=== PATIENT | female | born 1955 | race Caucasian/White ===

== ENCOUNTER 2019-06-29 13:11 | Emergency (ER) | payer OTHER ==
[~2019-06-29] VITALS: Ht 162.6 cm; Wt 99.8 kg
--- OUTSIDE RECORDS SUMMARY | ~2019-06-29 | XMS | Encounter Summary ---
Demographics + + + | Address | [address] | | | [place] [address] | + + + | Home Phone | | + + + | Preferred Language | Unknown | + + + | Marital Status | | + + + | Samaritan Affiliation | Unknown | + + + | Race | Unknown | + + + | Ethnic Group | Unknown | + + + Author + + + | Author | [facility] | | | and [place] | + + + | Organization | [facility] | | | and [place] | + + + | Address | Unknown | + + + | Phone | Unavailable | + + + Support + + +---------+ + | Name | Relationship | Address | Phone | + + +---------+ + | Eduard Jefferson | ECON | Unknown | | + + +---------+ + Care Team Providers + +------+ + | Care Stitch Separator Name | Role | Phone | + +------+ + | Deep Grace DO | PCP | | + +------+ + Reason for Visit +--------+ + | Reason | Comments | +--------+ + | Biopsy | liver biopsy | +--------+ + Encounter Details +--------+ + + + + | Date | Type | Department | Care Team | Description | +--------+ + + + + | 04/06/ | Telephone | [facility] [place] | [place], | Biopsy (liver | | 2017 | | GASTROENTEROLOGY | AMISHA [address] | biopsy) | | | | [address] | [place] [place] [address] | | | | | [address] [place], [place] | [place], [place] | | | | | [address] | [address] | | | | | [phone] | | | +--------+ + + + + Social History + +-------+ +--------+------+ | Tobacco Use | Types | Packs/Day | Years | Date | | | | | Used | | + +-------+ +--------+------+ | Never Smoker | | | | | + +-------+ +--------+------+ + +---+---+---+ | Smokeless Tobacco: | | | | | Never Used | | | | + +---+---+---+ + + +---------+ + | Alcohol Use | Drinks/Week | oz/Week | Comments | + + +---------+ + | Yes | 3 Standard drinks | 3.0 | | | | or equivalent | | | + + +---------+ + + + + | Sex Assigned at | Date Recorded | | | | + + + | Not on file | | + + + + + + + | Job Start Date | Occupation | Industry | + + + + | Not on file | Not on file | Not on file | + + + + + + + + | Travel History | Travel Start | Travel End | + + + + + + | No recent travel history available. | + + documented as of this encounter Plan of Treatment Not on filedocumented as of this encounter Visit Diagnoses Not on filedocumented in this encounter"
--- OUTSIDE RECORDS SUMMARY | ~2019-06-29 | XMS | Encounter Summary ---
Demographics + + + | Address | [address] | | | [place] [address] | + + + | Home Phone | | + + + | Preferred Language | Unknown | + + + | Marital Status | | + + + | Latter Day Affiliation | Unknown | + + + | Race | Unknown | + + + | Ethnic Group | Unknown | + + + Author + + + | Author | [facility] | | | and [place] | + + + | Organization | [facility] | | | and [place] | [...] Team Providers + +------+ + | Care Early Head Start Director Name | Role | Phone | + +------+ + | Deep Grace DO | PCP | | + +------+ + Encounter Details +--------+ + + + + | Date | Type | Department | Care Team | Description | +--------+ + + + + | 03/17/ | Abstract | [facility] [place] | [place], | | | 2017 | | GASTROENTEROLOGY | [address] | | | | | [address] | [place] [address] | | | | | [address] [place] | [place] | | | | | [address] | [address] | | | | | [phone] | | | +--------+ + + + + Social History + +-------+ +--------+------+ | Tobacco Use | Types | Packs/Day | Years | Date | | | | | Used | | + +-------+ +--------+------+ | Unknown If Ever | | | | | | Smoked | | | | | + +-------+ +--------+------+ + + +---------+ + | Alcohol Use [...] Not on filedocumented as of this encounter Procedures + +--------+ + + + | Procedure Name | Priori | Date/Time | Associated Diagnosis | Comments | | | ty | | | | + +--------+ + + + | HEPATITIS A, B, C | Routin | 12/29/2016 | | Results for this | | PANEL, REFLEX | e | | | procedure are in the | | | | | | results section. | + +--------+ + + + | EXTERNAL LAB: KATHERINE | Routin | 12/22/2016 | | Results for this | | | e | | | procedure are in the | | | | | | results section. | + +--------+ + + + | EXTERNAL LAB: | Routin | 12/22/2016 | | Results for this | | GLUCOSE | e | | | procedure are in the | | | | | | results section. | + +--------+ + + + | EXTERNAL LAB: ALT | Routin | 12/22/2016 | | Results for this | | | e | | | procedure are in the | | | | | | results section. | + +--------+ + + + | EXTERNAL LAB: AST | Routin | 12/22/2016 | | Results for this | | | e | | | procedure are in the | | | | | | results section. | + +--------+ + + + | EXTERNAL LAB: | Routin | 12/22/2016 | | Results for this | | ALKALINE PHOSPHATASE | e | | | procedure are in the | | | | | | results section. | + +--------+ + + + | EXTERNAL LAB: | Routin | 12/22/2016 | | Results for this | | BILIRUBIN, TOTAL | e | | | procedure are in the | | | | | | results section. | + +--------+ + + + | EXTERNAL LAB: | Routin | 12/22/2016 | | Results for this | | ALBUMIN | e | | | procedure are in the | | | | | | results section. | + +--------+ + + + | EXTERNAL LAB: | Routin | 12/22/2016 | | Results for this | | PROTEIN, TOTAL | e | | | procedure are in the | | | | | | results section. | + +--------+ + + + | EXTERNAL LAB: | Routin | 12/22/2016 | | Results for this | | CALCIUM | e | | | procedure are in the | | | | | | results section. | + +--------+ + + + | EXTERNAL LAB: CARBON | Routin | 12/22/2016 | | Results for this | | DIOXIDE | e | | | procedure are in the | | | | | | results section. | + +--------+ + + + | EXTERNAL LAB: | Routin | 12/22/2016 | | Results for this | | CHLORIDE | e | | | procedure are in the | | | | | | results section. | + +--------+ + + + | EXTERNAL LAB: | Routin | 12/22/2016 | | Results for this | | POTASSIUM | e | | | procedure are in the | | | | | | results section. | + +--------+ + + + | EXTERNAL LAB: SODIUM | Routin | 12/22/2016 | | Results for this | | | e | | | procedure are in the | | | | | | results section. | + +--------+ + + + | EXTERNAL LAB: | Routin | 12/22/2016 | | Results for this | | VITAMIN D, | e | | | procedure are in the | | 25-HYDROXY | | | | results section. | + +--------+ + + + | EXTERNAL LAB: | Routin | 12/22/2016 | | Results for this | | URINALYSIS | e | | | procedure are in the | | | | | | results section. | + +--------+ + + + | EXTERNAL LAB: NELSON | Routin | 12/22/2016 | | Results for this | | | e | | | procedure are in the | | | | | | results section. | + +--------+ + + + | EXTERNAL LAB: KAYY | Routin | 12/22/2016 | | Results for this | | | e | | | procedure are in the | | | | | | results section. | + +--------+ + + + | EXTERNAL LAB: | Routin | 12/22/2016 | | Results for this | | TRIGLYCERIDES | e | | | procedure are in the | | | | | | results section. | + +--------+ + + + | EXTERNAL LAB: | Routin | 12/22/2016 | | Results for this | | CHOLESTEROL, HDL | e | | | procedure are in the | | | | | | results section. | + +--------+ + + + | EXTERNAL LAB: | Routin | 12/22/2016 | | Results for this | | CHOLESTEROL, TOTAL | e | | | procedure are in the | | | | | | results section. | + +--------+ + + + | EXTERNAL LAB: | Routin | 12/22/2016 | | Results for this | | CHOLESTEROL, LDL | e | | | procedure are in the | | | | | | results section. | + +--------+ + + + | EXTERNAL LAB: EGFR | Routin | 12/22/2016 | | Results for this | | | e | | | procedure are in the | | | | | | results section. | + +--------+ + + + | EXTERNAL LAB: | Routin | 12/22/2016 | | Results for this | | CREATININE | e | | | procedure are in the | | | | | | results section. | + +--------+ + + + | LIPID PANEL | Routin | 12/22/2016 | | Results for this | | | e | | | procedure are in the | | | | | | results section. | + +--------+ + + + | URINALYSIS, REFLEX | Routin | 12/22/2016 | | Results for this | | MICROSCOPIC AND/OR | e | | | procedure are in the | | CULTURE | | | | results section. | + +--------+ + + + | CBC WITH | Routin | 12/22/2016 | | Results for this | | DIFFERENTIAL | e | | | procedure are in the | | | | | | results section. | + +--------+ + + + | HEMOGLOBIN A1C | Routin | 12/22/2016 | | Results for this | | | e | | | procedure are in the | | | | | | results section. | + +--------+ + + + | COMPREHENSIVE | Routin | 12/22/2016 | | Results for this | | METABOLIC PANEL | e | | | procedure are in the | | | | | | results section. | + +--------+ + + + documented in this encounter Results Hepatitis A, B, C Tone Sharma (12/29/2016) + + + + + + | Component | Value | Ref Range | Performed | Pathologist | | | | | At | Signature | + + + + + + | HEP A IGM | Non Reactive | Non Reactive | | | + + + + + + | Hepatitis B | Negative | | | | | Surface | | | | | | Ag, | | | | | | External | | | | | + + + + + + | HEP B | Negative | | | | | SURFACE | | | | | | ANTIBODY | | | | | + + + + + + | Hepatitis B | Non Reactive | Non Reactive | | | | Core Ab, | | | | | | Total | | | | | + + + + + + | HCV Ab | negative | | | | + + + + + + + + | Specimen | + + | Blood | + + Urinalysis, Reflex Microscopic and/or Culture (12/22/2016) + + + + + + | Component | Value | Ref Range | Performed | Pathologist | | | | | At | Signature | + + + + + + | COLLECTION | Clean Catch | | | | | METHOD 1 | | | | | + + + + + + | Color | straw | | | | + + + + + + | Clarity | Clear | | | | + + + + + + | Bilirubin, | Negative | Negative | | | | Urine | | | | | + + + + + + | Nitrite, | Negative | Negative | | | | Urine | | | | | + + + + + + | Urobilinoge | Normal | < 0.2 mg/dL, | | | | n, Urine | | 1.0 mg/dL, 4.0 | | | | | | mg/dL, Normal, | | | | | | 1.0 E.U./dL, | | | | | | 0.2 E.U./dL, | | | | | | 0.2 mg/dL, | | | | | | Negative, 1 | | | | | | mg/dL, <2.0 | | | | | | mg/dL | | | + + + + + + | CASTS | Negative | | | | + + + + + + | WBC, UA | 0 | 0 - 4 | | | + + + + + + | Squamous | negative | | | | | epithelial, | | | | | | UA, POC | | | | | + + + + + + | CRYSTAL UA | Negative | | | | + + + + + + | Bacteria, | negative | | | | | UA | | | | | + + + + + + + + | Specimen | + + | Urine | + + Comprehensive Metabolic Panel (12/22/2016) + + + + + + | Component | Value | Ref Range | Performed | Pathologist | | | | | At | Signature | + + + + + + | BUN/Creatin | 31.6 (A) | 6 - 28.6 | | | | ine Ratio | | | | | + + + + + + | Globulin | 3.2 | 1.8 - 3.5 | | | + + + + + + | Albumin/Any | 1.3 | 1.1 - 2.4 | | | | bulin Ratio | | | | | + + + + + + | Anion Gap | 17 | 7 - 21 mmol/L | | | + + + + + + + + | Specimen | + + | Blood | + + Lipid Panel (12/22/2016) + +-------+ + + + | Component | Value | Ref Range | Performed | Pathologist | | | | | At | Signature | + +-------+ + + + | VLDL | 23 | 4 - 40 | | | | Cholesterol | | | | | | [place] | | | | | + +-------+ + + + | Chol/HDL | 3.4 | 0.0 - 4.4 | | | | Ratio | | | | | + +-------+ + + + | Non HDL | 130 | 0 - 130 | | | | Chol. | | | | | | (LDL+VLDL) | | | | | + +-------+ + + + + + | Specimen | + + | Blood | + + CBC with Differential (12/22/2016) + +-------+ + + + | Component | Value | Ref Range | Performed | Pathologist | | | | | At | Signature | + +-------+ + + + | MCH | 31.0 | 26.0 - 33.0 pg | | | + +-------+ + + + | MCHC | 34.0 | 30.0 - 36.0 % | | | + +-------+ + + + | Basophils % | 0.6 | 0 - 2 | | | + +-------+ + + + + + | Specimen | + + | Blood | + + Hemoglobin A1C (12/22/2016) + + + + + + | Component | Value | Ref Range | Performed | Pathologist | | | | | At | Signature | + + + + + + | Hemoglobin | 5.9Comment: Est Avg | | EXTERNAL | | | A1c, | Glucose 123 | | LAB | | | external | | | | | + + + + + + + + | Specimen | + + | Blood | + + + +---------+ + + | Performing | Address | City/State/Zipcode | Phone Number | | Organization | | | | + +---------+ + + | EXTERNAL LAB | | | | + +---------+ + + External Lab: BUN (12/22/2016) + +--------+ + + + | Component | Value | Ref Range | Performed | Pathologist | | | | | At | Signature | + +--------+ + + + | BUN, | 24 (A) | 6 - 23 | EXTERNAL | | | External | | | LAB | | + +--------+ + + + + +---------+ + + | Performing | Address | City/State/Zipcode | Phone Number | | Organization | | | | + +---------+ + + | EXTERNAL LAB | | | | + +---------+ + + External Lab: Glucose (12/22/2016) + +---------+ + + + | Component | Value | Ref Range | Performed | Pathologist | | | | | At | Signature | + +---------+ + + + | Glucose, | 109 (A) | 70 - 100 | EXTERNAL | | | External | | | LAB | | + +---------+ + + + + +---------+ + + | Performing | Address | City/State/Zipcode | Phone Number | | Organization | | | | + +---------+ + + | EXTERNAL LAB | | | | + +---------+ + + External Lab: ALT (12/22/2016) + +--------+ + + + | Component | Value | Ref Range | Performed | Pathologist | | | | | At | Signature | + +--------+ + + + | ALT, | 70 (A) | 7 - 52 | EXTERNAL | | | External | | | LAB | | + +--------+ + + + + +---------+ + + | Performing | Address | City/State/Zipcode | Phone Number | | Organization | | | | + +---------+ + + | EXTERNAL LAB | | | | + +---------+ + + External Lab: LUTHER (12/22/2016) + +--------+ + + + | Component | Value | Ref Range | Performed | Pathologist | | | | | At | Signature | + +--------+ + + + | AST, | 48 (A) | 13 - 39 | EXTERNAL | | | External | | | LAB | | + +--------+ + + + + +---------+ + + | Performing | Address | City/State/Zipcode | Phone Number | | Organization | | | | + +---------+ + + | EXTERNAL LAB | | | | + +---------+ + + External Lab: Alkaline Phosphatase (12/22/2016) + +-------+ + + + | Component | Value | Ref Range | Performed | Pathologist | | | | | At | Signature | + +-------+ + + + | ALP, | 91 | 31 - 130 | EXTERNAL | | | External | | | LAB | | + +-------+ + + + + +---------+ + + | Performing | Address | City/State/Zipcode | Phone Number | | Organization | | | | + +---------+ + + | EXTERNAL LAB | | | | + +---------+ + + External Lab: Bilirubin, Total (12/22/2016) + +-------+ + + + | Component | Value | Ref Range | Performed | Pathologist | | | | | At | Signature | + +-------+ + + + | Bilirubin, | 0.7 | 0 - 1.2 | EXTERNAL | | | Total, | | | LAB | | | External | | | | | + +-------+ + + + + +---------+ + + | Performing | Address | City/State/Zipcode | Phone Number | | Organization | | | | + +---------+ + + | EXTERNAL LAB | | | | + +---------+ + + External Lab: Albumin (12/22/2016) + +-------+ + + + | Component | Value | Ref Range | Performed | Pathologist | | | | | At | Signature | + +-------+ + + + | Albumin, | 4.3 | 3.5 - 5 | EXTERNAL | | | External | | | LAB | | + +-------+ + + + + +---------+ + + | Performing | Address | City/State/Zipcode | Phone Number | | Organization | | | | + +---------+ + + | EXTERNAL LAB | | | | + +---------+ + + External Lab: Protein, Total (12/22/2016) + +-------+ + + + | Component | Value | Ref Range | Performed | Pathologist | | | | | At | Signature | + +-------+ + + + | Protein, | 7.5 | 6 - 8 | EXTERNAL | | | Total, | | | LAB | | | External | | | | | + +-------+ + + + + +---------+ + + | Performing | Address | City/State/Zipcode | Phone Number | | Organization | | | | + +---------+ + + | EXTERNAL LAB | | | | + +---------+ + + External Lab: Calcium (12/22/2016) + +-------+ + + + | Component | Value | Ref Range | Performed | Pathologist | | | | | At | Signature | + +-------+ + + + | Calcium, | 10 | 8.4 - 10.2 | EXTERNAL | | | External | | | LAB | | + +-------+ + + + + +---------+ + + | Performing | Address | City/State/Zipcode | Phone Number | | Organization | | | | + +---------+ + + | EXTERNAL LAB | | | | + +---------+ + + External Lab: Carbon Dioxide (12/22/2016) + +-------+ + + + | Component | Value | Ref Range | Performed | Pathologist | | | | | At | Signature | + +-------+ + + + | Carbon | 20 | 19 - 31 | EXTERNAL | | | Dioxide, | | | LAB | | | External | | | | | + +-------+ + + + + +---------+ + + | Performing | Address | City/State/Zipcode | Phone Number | | Organization | | | | + +---------+ + + | EXTERNAL LAB | | | | + +---------+ + + External Lab: Chloride (12/22/2016) + +-------+ + + + | Component | Value | Ref Range | Performed | Pathologist | | | | | At | Signature | + +-------+ + + + | Chloride, | 105 | 98 - 112 | EXTERNAL | | | External | | | LAB | | + +-------+ + + + + +---------+ + + | Performing | Address | City/State/Zipcode | Phone Number | | Organization | | | | + +---------+ + + | EXTERNAL LAB | | | | + +---------+ + + External Lab: Potassium (12/22/2016) + +-------+ + + + | Component | Value | Ref Range | Performed | Pathologist | | | | | At | Signature | + +-------+ + + + | Potassium, | 4.3 | 3.6 - 5.1 | EXTERNAL | | | External | | | LAB | | + +-------+ + + + + +---------+ + + | Performing | Address | City/State/Zipcode | Phone Number | | Organization | | | | + +---------+ + + | EXTERNAL LAB | | | | + +---------+ + + External Lab: Sodium (12/22/2016) + +-------+ + + + | Component | Value | Ref Range | Performed | Pathologist | | | | | At | Signature | + +-------+ + + + | Sodium, | 138 | 132 - 143 | EXTERNAL | | | External | | | LAB | | + +-------+ + + + + +---------+ + + | Performing | Address | City/State/Zipcode | Phone Number | | Organization | | | | + +---------+ + + | EXTERNAL LAB | | | | + +---------+ + + External Lab: Vitamin D, 25-Hydroxy (12/22/2016) + +-------+ + + + | Component | Value | Ref Range | Performed | Pathologist | | | | | At | Signature | + +-------+ + + + | Vitamin D, | 54 | 30 - 100 | EXTERNAL | | | 25-Hydroxy, | | | LAB | | | External | | | | | + +-------+ + + + + + | Specimen | + + | Blood | + + + +---------+ + + | Performing | Address | City/State/Zipcode | Phone Number | | Organization | | | | + +---------+ + + | EXTERNAL LAB | | | | + +---------+ + + External Lab: Urinalysis (12/22/2016) + + + + + + | Component | Value | Ref Range | Performed | Pathologist | | | | | At | Signature | + + + + + + | UA Blood, | 150 | | EXTERNAL | | | External | | | LAB | | + + + + + + | UA Glucose, | Normal | | EXTERNAL | | | External | | | LAB | | + + + + + + | UA Ketones, | Negative | | EXTERNAL | | | External | | | LAB | | + + + + + + | UA Ph, | 5 | 5 - 9 | EXTERNAL | | | External | | | LAB | | + + + + + + | UA | Negative | | EXTERNAL | | | Proteins, | | | LAB | | | External | | | | | + + + + + + | UA RBC, | 50 (A) | 0 - 4 | EXTERNAL | | | External | | | LAB | | + + + + + + | UA Specific | 1.011 | 1.005 - 1.03 | EXTERNAL | | | [place], | | | LAB | | | External | | | | | + + + + + + | UA | Negative | | EXTERNAL | | | Leukocyte | | | LAB | | | Esterase, | | | | | | External | | | | | + + + + + + + +---------+ + + | Performing | Address | City/State/Zipcode | Phone Number | | Organization | | | | + +---------+ + + | EXTERNAL LAB | | | | + +---------+ + + External Lab: CBC (12/22/2016) + + + + + + | Component | Value | Ref Range | Performed | Pathologist | | | | | At | Signature | + + + + + + | WBC, | 7 | 4.5 - 11 | EXTERNAL | | | External | | | LAB | | + + + + + + | HGB, | 15.4 | 12 - 16 | EXTERNAL | | | External | | | LAB | | + + + + + + | HCT, | 45.8 (A) | 35 - 45 | EXTERNAL | | | External | | | LAB | | + + + + + + | PLT, | 200 | 140 - 440 | EXTERNAL | | | External | | | LAB | | + + + + + + | Neutrophils | 40.6 | 39 - 80 | EXTERNAL | | | %, | | | LAB | | | External | | | | | + + + + + + | Lymphocytes | 47.2 (A) | 24 - 44 | EXTERNAL | | | %, | | | LAB | | | External | | | | | + + + + + + | Monocytes | 8.5 | 0 - 12 | EXTERNAL | | | %, External | | | LAB | | + + + + + + | Eosinophils | 3.1 | 0 - 6 | EXTERNAL | | | %, | | | LAB | | | External | | | | | + + + + + + | RBC, | 4.98 | 3.8 - 5.1 | EXTERNAL | | | External | | | LAB | | + + + + + + | MCV, | 92 | 81 - 99 | EXTERNAL | | | External | | | LAB | | + + + + + + | RDW, | 13.7 | 10.5 - 15 | EXTERNAL | | | External | | | LAB | | + + + + + + + +---------+ + + | Performing | Address | City/State/Zipcode | Phone Number | | Organization | | | | + +---------+ + + | EXTERNAL LAB | | | | + +---------+ + + External Lab: TSH (12/22/2016) + +-------+ + + + | Component | Value | Ref Range | Performed | Pathologist | | | | | At | Signature | + +-------+ + + + | TSH, | 1.57 | 0.27 - 4.2 | EXTERNAL | | | External | | | LAB | | + +-------+ + + + + + | Specimen | + + | Blood | + + + +---------+ + + | Performing | Address | City/State/Zipcode | Phone Number | | Organization | | | | + +---------+ + + | EXTERNAL LAB | | | | + +---------+ + + External Lab: Triglycerides (12/22/2016) + +-------+ + + + | Component | Value | Ref Range | Performed | Pathologist | | | | | At | Signature | + +-------+ + + + | Triglycerid | 117 | 30 - 150 | EXTERNAL | | | es, | | | LAB | | | External | | | | | + +-------+ + + + + + | Specimen | + + | Blood | + + + +---------+ + + | Performing | Address | City/State/Zipcode | Phone Number | | Organization | | | | + +---------+ + + | EXTERNAL LAB | | | | + +---------+ + + External Lab: Cholesterol, HDL (12/22/2016) + +-------+ + + + | Component | Value | Ref Range | Performed | Pathologist | | | | | At | Signature | + +-------+ + + + | HDL | 53.3 | 40 - 99,999 | EXTERNAL | | | Cholesterol | | mg/dl | LAB | | | , External | | | | | + +-------+ + + + + + | Specimen | + + | Blood | + + + +---------+ + + | Performing | Address | City/State/Zipcode | Phone Number | | Organization | | | | + +---------+ + + | EXTERNAL LAB | | | | + +---------+ + + External Lab: Cholesterol, Total (12/22/2016) + +-------+ + + + | Component | Value | Ref Range | Performed | Pathologist | | | | | At | Signature | + +-------+ + + + | Cholesterol | 183 | 0 - 200 mg/dl | EXTERNAL | | | , Total, | | | LAB | | | External | | | | | + +-------+ + + + + + | Specimen | + + | Blood | + + + +---------+ + + | Performing | Address | City/State/Zipcode | Phone Number | | Organization | | | | + +---------+ + + | EXTERNAL LAB | | | | + +---------+ + + External Lab: Cholesterol, LDL (12/22/2016) + +---------+ + + + | Component | Value | Ref Range | Performed | Pathologist | | | | | At | Signature | + +---------+ + + + | LDL | 106 (A) | 0 - 100 | EXTERNAL | | | Cholesterol | | | LAB | | | , Direct, | | | | | | External | | | | | + +---------+ + + + + + | Specimen | + + | Blood | + + + +---------+ + + | Performing | Address | City/State/Zipcode | Phone Number | | Organization | | | | + +---------+ + + | EXTERNAL LAB | | | | + +---------+ + + External Lab: eGFR (12/22/2016) + +-------+ + + + | Component | Value | Ref Range | Performed | Pathologist | | | | | At | Signature | + +-------+ + + + | eGFR, | >60 | 60 - 99,999 | EXTERNAL | | | External | | | LAB | | + +-------+ + + + + + | Specimen | + + | Blood | + + + +---------+ + + | Performing | Address | City/State/Zipcode | Phone Number | | Organization | | | | + +---------+ + + | EXTERNAL LAB | | | | + +---------+ + + External Lab: Creatinine (12/22/2016) + +-------+ + + + | Component | Value | Ref Range | Performed | Pathologist | | | | | At | Signature | + +-------+ + + + | Creatinine, | 0.76 | 0.7 - 1.33 | EXTERNAL | | | External | | | LAB | | + +-------+ + + + + + | Specimen | + + | Blood | + + + +---------+ + + | Performing | Address | City/State/Zipcode | Phone Number | | Organization | | | | + +---------+ + + | EXTERNAL LAB | | | | + +---------+ + + documented in this encounter Visit Diagnoses Not on filedocumented in this encounter"
--- OUTSIDE RECORDS SUMMARY | ~2019-06-29 | XMS | Encounter Summary ---
Demographics + + + | Address | [address] | | | [place] [address] | + + + | Home Phone | | + + + | Preferred Language | Unknown | + + + | Marital Status | | + + + | Zoroastrianism Affiliation | Unknown | + + + | Race | Unknown | + + + | Ethnic Group | Unknown | + + + Author + + + | Author | [facility] | | | and [place] | + + + | Organization | [facility] | | | and [place] | [...] Team Providers + +------+ + | Care Health Commissioner Name | Role | Phone | + +------+ + | Deep Grace DO | PCP | | + +------+ + Reason for Visit + + + | Reason | Comments | + + + | Follow-up | | + + + Encounter Details +--------+---------+ + + + | Date | Type | Department | Care Team | Description | +--------+---------+ + + + | 04/28/ | Office | [facility] | [place], | Elevated LFTs | | 2017 | Visit | GASTROENTEROLOGY | AMISHA Brennan [address] | (Primary Dx); Fatty | | | | [address] | [place] [address] | infiltration of | | | | [address] [place], [place] | [place], [place] | liver; Obesity (BMI | | | | [address] | [address] | 30-39.9) | | | | [phone] | | | +--------+---------+ + + + Social History + +-------+ [...] + + +---------+ + | Yes | 1 Glasses of wine | 3.0 | Not each one per | | | 1 Cans of beer 1 | | week. It | | | Shots of liquor | | | | | | | s either or. | + + +---------+ + + + [...] + + documented as of this encounter Last Filed Vital Signs + + + + + | Vital Sign | Reading | Time Taken | Comments | + + + + + | Blood Pressure | 134/84 | 04/28/2017 10:25 AM | | | | | PDT | | + + + + + | Pulse | 88 | 04/28/2017 10:25 AM | | | | | PDT | | + + + + + | Temperature | 36.5 C (97.7 F) | 04/28/2017 10:25 AM | | | | | PDT | | + + + + + | Respiratory Rate | 14 | 04/28/2017 10:25 AM | | | | | PDT | | + + + + + | Oxygen Saturation | 98% | 04/28/2017 10:25 AM | | | | | PDT | | + + + + + | Inhaled Oxygen | - | - | | | Concentration | | | | + + + + + | Weight | 93 kg (205 lb 0.4 | 04/28/2017 10:25 AM | | | | oz) | PDT | | + + + + + | Height | - | - | | + + + + + | Body Mass Index | 35.19 | 04/22/2017 8:04 AM | | | | | PDT | | + + + + + documented in this encounter Progress Notes Anu Salinas ARNP - 04/28/2017 10:30 AM PDTFormatting of this note might be differe nt from the original. PATIENT NAME: Jose Jefferson : 1955: AGE: 62 y.o. REFERRED BY: No additional provider found PRIMARY CARE: Deep Grace Subjective: CHIEF COMPLAINT: Jose Jefferson is a 62 y.o. female is here for a follow up. She is being seen today f or follow up liver biopsy. HISTORY OF PRESENT ILLNESS: She is here following liver biopsy due to elevated liver enzymes. She continues to lose weight intentionally. She has modified her diet and is eating SyncSumi er. She is here for follow up labs and biopsy. Denies ascites, jaundice, hematemesis, peripheral edema, sleep changes, or confusion. 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 Internal hemorrhoids.~ [facility] Dr. Evans EYE SURGERY 2014 LIVER BIOPSY 04/22/2017 Procedure: US GUIDED LIVER BIOPSY - Location: [facility] ULTRASOUND TONSILLECTOMY 1960 Family History Problem Relation Age of Onset Heart disease Mother Hypertension Mother High blood pressure Mother High cholesterol Mother Stroke Mother Slight Hypertension Father High blood pressure Father High cholesterol Father Other (see comment) Sister possible fibromyalgia Hypertension Sister Diabetes Other Heart disease Other Social History Social History Marital status: Spouse name: N/A Number of children: N/A Years of education: N/A Occupational History Not on file. Social History Main Topics Smoking status: Never Smoker Smokeless tobacco: Never Used Alcohol use 1.8 oz/week 1 Glasses of wine, 1 Cans of beer, 1 Shots of liquor per week Comment: Not each one per week. It s either or. Drug use: No Sexual activity: No Other Topics Concern Not on file Social History Narrative No narrative on file Review Of Systems Constitutional: Denies any fevers, chills, or unintentional weight loss. Respiratory:Denies shortness of breath, cough or wheezing. Gastrointestinal:Negative except as stated above. Cardiovascular:Denies chest pain, palpitations, or swelling to legs Objective: PHYSICAL EXAM: General: Alert and oriented, NAD Eyes: Sclera clear Mouth: Mucous membranes moist Extremities: No clubbing or edema Skin: Warm, dry, intact. No rashes noted Neuro: Cranial nerves 2-12 grossly intact. Psych: Appropriate mood and affect. Admission on 04/22/2017, Discharged on 04/22/2017 Component Date Value Ref Range Status WBC 04/22/2017 7.3 4.0 - 11.0 K/uL Final RBC 04/22/2017 4.75 3.70 - 5.20 M/uL Final Hgb 04/22/2017 15.1 11.5 - 16.0 g/dL Final Hct 04/22/2017 43.9 34.0 - 47.0 % Final MCV 04/22/2017 92.3 83.0 - 101.0 fL Final MCH 04/22/2017 31.7 28.0 - 35.0 pg Final MCHC 04/22/2017 34.3 32.0 - 36.0 g/dL Final RDW-CV 04/22/2017 13.1 <15.0 % Final Platelet Count 04/22/2017 195 140 - 440 K/uL Final MPV 04/22/2017 8.0 fL Final PROTIME 04/22/2017 12.6 11.3 - 13.9 seconds Final INR 04/22/2017 0.95 0.90 - 1.10 Final Abstract on 04/21/2017 Component Date Value Ref Range Status Creatinine, External 04/18/2017 0.9 0.7 - 1.25 Final eGFR, External 04/18/2017 >60 60 - 99,999 Final Ferritin, External 04/18/2017 476.2* 13 - 150 Final Iron Binding Capacity, External 04/18/2017 217 Final Iron Saturation, External 04/18/2017 26.6 20 - 55 Final Iron, External 04/18/2017 78.8 37 - 160 Final Sodium, External 04/18/2017 140 132 - 143 Final Potassium, External 04/18/2017 4.2* 5.1 - 102 Final Chloride, External 04/18/2017 102 95 - 112 Final Carbon Dioxide, External 04/18/2017 22 19 - 31 Final Calcium, External 04/18/2017 9.9 8.4 - 10.2 Final Protein, Total, External 04/18/2017 6.9 6 - 8 Final Albumin, External 04/18/2017 4.5 3.5 - 5 Final Bilirubin, Total, External 04/18/2017 0.6 0 - 1.2 Final ALP, External 04/18/2017 87 31 - 130 Final AST, External 04/18/2017 19 13 - 39 Final ALT, External 04/18/2017 25 7 - 52 Final Glucose, External 04/18/2017 98 70 - 100 Final BUN, External 04/18/2017 22 6 - 23 Final INR, External 04/18/2017 1 Final PT, External 04/18/2017 13.2 12 - 15 Final WBC, External 04/18/2017 6.7 4.5 - 11 Final HGB, External 04/18/2017 14.9 12 - 16 Final HCT, External 04/18/2017 43.8 35 - 45 Final PLT, External 04/18/2017 198 140 - 440 Final Neutrophils %, External 04/18/2017 39.9 39 - 80 Final Lymphocytes %, External 04/18/2017 50.2* 24 - 44 Final Monocytes %, External 04/18/2017 6.1 0 - 12 Final Eosinophils %, External 04/18/2017 3.3 0 - 6 Final RBC, External 04/18/2017 4.74 3.5 - 5.1 Final MCV, External 04/18/2017 92 81 - 99 Final RDW, External 04/18/2017 13.1 10.5 - 15 Final TIBC 04/18/2017 286 245 - 400 ug/dL Final TRANSFERRIN 04/18/2017 211.5 192.0 - 382.0 mg/dL Final ANION GAP 04/18/2017 20 7 - 21 mmol/L Final BUN/Creatinine Ratio 04/18/2017 24.4 6 - 28.6 Final Globulin 04/18/2017 2.4 1.8 - 3.5 Final Albumin/Globulin Ratio 04/18/2017 1.9 1.1 - 2.4 Final A-1 Antitrypsin 04/18/2017 146 84 - 218 Final MITOCHONDRIAL AB 04/18/2017 <1:20 0 - 1:40 Final Smooth Muscle Ab 04/18/2017 1:80 0 - 1:40 Final CERULOPLASMIN 04/18/2017 29.9 18 - 58 Final AFP Tumor Marker 04/18/2017 2.4 0.0 - 7.0 ng/mL Final MCH 04/18/2017 31.0 26.0 - 33.0 pg Final MCHC 04/18/2017 34.0 30.0 - 36.0 % Final Basophils % 04/18/2017 0.5 0 - 2 Final ALIVIA Titer 04/18/2017 <1:80 0 - 1:80 Final Nuclear Ab Pattern.Nucleolar 04/18/2017 N/A Final Abstract on 03/30/2017 Component Date Value Ref Range Status Colonoscopy Impression, External 05/27/2016 Diagnoses: diverticulosis, no evidence of p olyps. Internal hemorrhoids.~ [facility] Dr. Evans Final Liver biopsy 04/22/2017: FINAL PATHOLOGIC DIAGNOSIS: Liver, needle biopsy: - Chronic hepatitis with minimal activity (grade 1 of 4 grades, Laurence-Brigido; Metavir act ivity score A1) and periportal fibrosis (stage 2 of 4 stages, Laurence-Brigido; Metavir fibrosis score F2). - Mild steatosis. COMMENT: Available laboratory data indicates mild elevation of transaminases with AST-to-ALT ratio o f less than 1. Laboratory tests are negative for hepatitis A, B and C. More recently, s tudies for transaminases were normal. Ferritin was elevated, but iron binding capacity was normal. ALIVIA titer was indicated to be less than 1:80, antimitochondrial antibody titer less than 1: 20 and smooth muscle antibody positive at 1:80. There are moderate numbers of macrophages containing diastase-resistant material scattered within the liver. These are markers of prior inflammation and may correlate with the earli er elevated transaminases that have normalized. The mild inflammatory changes are predominantly luis eduardo l based with relative sparing of central vein regions (acinar zone 3). This makes steatohe patitis a less likely explanation for the inflammatory changes present, but cannot be ruled out. There a re scattered eosinophils, and this raises the possibility of some form of medication-associa jamey liver injury. Review of the patient's medications (prescribed, mafp-jca-vplhnil and herbal remedies) may be informative. Since there is negligible plasma cell component to the inflammation and an absence of active interface hepatitis, autoimmune hepatitis appears unlikely despite the low level anti-bertha h muscle antibody lab test. In addition, the patient has normal globulin levels, and typical ly patients with autoimmune hepatitis will have elevated IgG. There are no features to suggest primary sanna iary tract lesion. Assessment: 1. Elevated LFTs 2. Fatty infiltration of liver 3. Obesity (BMI 30-39.9) Plan: Continue with weight loss and low fat diet. Discussed herbal supplements to avoid. Recommend screening for hepatocellular carcinoma secondary to fatty liver without cirrhosis every 12 months. This includes CBC, CMP, INR, AFP, and abdominal ultrasound. Patient is to call with any question or concerns. Any fevers, chills, chest pain, SOB or o ther serious symptoms patient is to call the office or go to ER Cc: Deep Grace This note was dictated using voice recognition software. Please contact me if there are an y questions regarding its content. documented in this encounter Plan of Treatment Not on filedocumented as of this encounter Procedures + +--------+ + + + | Procedure Name | Priori | Date/Time | Associated Diagnosis | Comments | | | ty | | | | + +--------+ + + + | LABS - EXTERNAL SCAN | | 04/18/2017 | | Results for this | | | | 12:00 AM | | procedure are in the | | | | PDT | | results section. | + +--------+ + + + | LABS - EXTERNAL SCAN | | 04/18/2017 | | Results for this | | | | 12:00 AM | | procedure are in the | | | | PDT | | results section. | + +--------+ + + + documented in this encounter Results LABS - EXTERNAL SCAN (04/18/2017 12:00 AM PDT) + + + | Narrative | Performed At | + + + | Ordered by an | | | unspecified provider. | | + + + LABS - EXTERNAL SCAN (04/18/2017 12:00 AM PDT) + + + | Narrative | Performed At | + + + | Ordered by an | | | unspecified provider. | | + + + documented in this encounter Visit Diagnoses + + | Diagnosis | + + | Elevated LFTs - Primary Other abnormal blood chemistry | + + | Fatty infiltration of liver Other chronic nonalcoholic liver disease | + + | Obesity (BMI 30-39.9) Obesity, unspecified | + + documented in this encounter"
--- OUTSIDE RECORDS SUMMARY | ~2019-06-29 | XMS | Encounter Summary ---
Demographics + + + | Address | [address] | | | [place] [address] | + + + | Home Phone | | + + + | Preferred Language | Unknown | + + + | Marital Status | | + + + | Denominational Affiliation | Unknown | + + + | Race | Unknown | + + + | Ethnic Group | Unknown | + + + Author + + + | Author | [facility] | | | and [place] | + + + | Organization | [facility] | | | and [place] | [...] Team Providers + +------+ + | Care Hotel Associate Name | Role | Phone | + +------+ + | Deep Grace DO | PCP | | + +------+ + Reason for Referral Diagnostic/Screening (Routine) +--------+--------+ + + + + | Status | Reason | Specialty | Diagnoses / | Referred By | Referred To | | | | | Procedures | Contact | Contact | +--------+--------+ + + + + | Closed | | Radiology | Diagnoses | | [facility] | | | | | Fatty | Rita, | Ultrasound | | | | | infiltration | Anu, | [address] | | | | | of liver | SECURITY INSPECTOR [address] | [place], | | | | | Procedures | [address], [place] | [place] | | | | | [place] Guided | [address] | [address] | | | | | Liver Biopsy | [place] | Phone: | | | | | [place] | [address] | [phone] | | | | | GUIDE NEEDLE | Phone: | Fax: | | | | | BIOPSY NE | [phone] | [phone] | | | | | BIOPSY LIVER | Fax: | | | | | | NEEDLE | [phone] | | | | | | PERCUTANEOUS | | | +--------+--------+ + + + + Reason for Visit + + + | Reason | Comments | + + + | New Patient | fatty liver | + + + Evaluate & Treat (Routine) +--------+--------+ + + + + | Status | Reason | Specialty | Diagnoses / | Referred By | Referred To | | | | | Procedures | Contact | Contact | +--------+--------+ + + + + | Closed | | Gastroenterol | Diagnoses | Lesly, | Shonai, | | | | ogy | Fatty | Deep Philip, | Mateus Philip MD | | | | | (change of) | DO [address] | [address], | | | | | liver, not | [address] [place] | [address] | | | | | elsewhere | [place], [place] | [place], | | | | | classified | [address] | [place] [address] | | | | | Procedures | Phone: | Phone: | | | | | Office Visit | [phone] | [phone] | | | | | | Fax: | Fax: | | | | | | [phone] | [phone] | +--------+--------+ + + + + Encounter Details +--------+---------+ + + + | Date | Type | Department | Care Team | Description | +--------+---------+ + + + | 03/31/ | Office | [facility] | Rita, | Fatty infiltration | | 2017 | Visit | GASTROENTEROLOGY | AMISHA Brennan [address] | of liver (Primary | | | | [address] | [place], [place] [address] | Dx); Obesity (BMI | | | | [address] [place], [place] | [place], [place] | 30-39.9); Elevated | | | | [address] | [address] | LFTs | | | | [phone] | | | +--------+---------+ + + + [...] + + + | Blood Pressure | 136/72 | 03/31/2017 9:46 AM | | | | | PDT | | + + + + + | Pulse | 69 | 03/31/2017 9:46 AM | | | | | PDT | | + + + + + | Temperature | 36.3 C (97.3 F) | 03/31/2017 9:46 AM | | | | | PDT | | + + + + + | Respiratory Rate | 24 | 03/31/2017 9:46 AM | | | | | PDT | | + + + + + | Oxygen Saturation | 98% | 03/31/2017 9:46 AM | | | | | PDT | | + + + + + | Inhaled Oxygen | - | - | | | Concentration | | | | + + + + + | Weight | 93.4 kg (206 lb) | 03/31/2017 9:46 AM | | | | | PDT | | + + + + + | Height | 162.6 cm (5' 4") | 03/31/2017 9:46 AM | | | | | PDT | | + + + + + | Body Mass Index | 35.36 | 03/31/2017 9:46 AM | | | | | PDT | | + + + + + documented in this encounter Patient Instructions Patient Instructions Anu Salinas ARNP - 03/31/2017 10:00 AM PDT Nonalcoholic Fatty Liver Disease (NAFLD) Nonalcoholic fatty liver disease (NAFLD) is a common disease of the liver. It occurs when y ou have too much fat in the liver. If NAFLD is severe, it can cause liver damage that seems like the damage caused by drinking too much alcohol. But NAFLD is not caused by drinking alc ohol. This sheet tells you more about NAFLD and how it can be managed. How the liver works The liver is an organin the upper right side of the belly (abdomen). It has many importan t jobs. These include: Breaking down (metabolizing) proteins, carbohydrates, and fats Making a substance called bile that helps break down fats Storing and releasing sugar (glucose) into the blood to give the body energy Removing toxins from the blood Helping with blood clotting Understanding NAFLD A healthy liver may contain some fat. But if too much fat builds up in the liver, this caus es NAFLD. NAFLD can be mild, causing fatty liver. Or it can be more severe and show inflamma tion, as well as the fat. This can cause non-alcoholic steatohepatitis (HARVEY). Fatty liver. With fatty liver, the liver simply has more fat than normal. This extra fat usually does not harm the liver. HARVEY. With HARVEY, the fatty liver becomes inflamed over time. HARVEY is serious because it can lead to scarring of the liver (fibrosis).Over time, the scarring may lead to cirrhosis of the liver. This can eventually cause liver failure or liver cancer. Causes and risk factors of NAFLD Doctors don't know what causes NAFLD. But certain thingsmake the problem more likely to h appen. These include: Obesity Prediabetes or diabetes High levels of fat found in the blood (cholesterol and triglycerides) Being exposed to certain medicines Symptoms of NAFLD Most people with NAFLD have no symptoms. If symptoms do occur, they can include: Tiredness Weakness Weight loss Loss of appetite Nausea and vomiting Belly pain and cramping Yellowing of the skin and eyes (jaundice), as well as dark urine, or light-colored stool s Swelling in the belly or legs Diagnosing NAFLD Your healthcare providermay think you have NAFLD if routine blood tests showhigh levels of liver enzymes. This may mean you havea liver problem. You may need one or more imaging tests, such as an ultrasound, CT, or MRI. You may need moreblood tests to look for other causes of liver disease.You may also need a liver biopsy. During this test, a hollow needl e is used to remove a tiny tissue sample from your liver. This tissue is then checked in a l ab. This test can find signs of damage to liver tissue. It can also help figure out the caus e of the damage and tell the difference between fatty liver and HARVEY. Treating NAFLD Treatment for NAFLD varies for each person. The best early treatment is to treat any underl joe conditions causing metabolic syndrome. This is the name for a group of conditions that includes: High blood pressure High levels of cholesterol and triglycerides Being overweight or obese Diabetes Your healthcare provider will monitor your health and treat any symptoms or underlying heal th problems you have. Your provider will also work with you to control your risk factors. Th is will make liverdamage less likely. In fact, treating those underlying conditions can of ten improve liver disease.You may need to take certain medicines, but no medicine will cur e NAFLD. This is why treating the underlying conditions is most important. Your plan may inc lude: Losing extra weight Getting regular exercise Controlling diabetes and high cholesterol or triglyceride levels Taking medicines and vitamins as prescribed by your provider Quitting smoking Not drinking alcohol Eating a healthy and balanced diet Living with NAFLD If NAFLD is caught early, it can be managed with treatment. Your healthcare provider will d iscuss further treatment choices with you as needed. Be sure to ask your provider about recommended vaccines. These include vaccines for viruses that can cause liver disease. Date Last Reviewed: 05/27/201619999411-8926 [employer]. [address] [place] [address]. All righ ts reserved. This information is not intended as a substitute for professional medical care. Always follow your healthcare professional's instructions. documented in this encounter Progress Notes Anu Salinas ARNP - 03/31/2017 10:00 AM PDTFormatting of this note might be differe nt from the original. PATIENT NAME: Jose Jefferson : 1955: AGE: 62 y.o. REFERRED BY: Deep Grace PRIMARY CARE: Deep Grace Subjective: CHIEF COMPLAINT: Jose Jefferson is a 62 y.o. female referred by Deep Grace for evaluation and treatment of fatty liver. HISTORY OF PRESENT ILLNESS: Patient reports that during routine physical, she was found to have elevated liver fuction tests and fatty liver. She is unsure if there is a history of elevation of LFTs. Labs showed no evidence of exposure to Hepatitis C or adequate immunization for Hepatitis A or B. She has an average 1, 8 ounce glass of wine per week. She has a history of elevated cholesterol. She has intentionally lost about 20 lbs since 2016. No known personal or family history of autoimmune disease. No known use of hepatoxic medications. Denies ascites, jaundice, hematemesis, peripheral edema, sleep changes, or confusion. 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 Internal hemorrhoids.~ [facility] Dr. Evans Family History Problem Relation Age of Onset Heart disease Mother Hypertension Mother Hypertension Father Other (see comment) Sister possible fibromyalgia Hypertension Sister Diabetes Other Heart disease Other Social History Social History Marital status: Spouse name: N/A Number of children: N/A Years of education: N/A Occupational History Not on file. Social History Main Topics Smoking status: Never Smoker Smokeless tobacco: Never Used Alcohol use 1.8 oz/week 3 Standard drinks or equivalent per week Drug use: Unknown Sexual activity: Not on file Other Topics Concern Not on file Social History Narrative No narrative on file Review Of Systems Constitutional: Denies any fevers, chills, or unintentional weight loss. Eye: Denies using glaucoma eye drops. Denies dry, burning, painful eyes Respiratory:Denies shortness of breath, cough or wheezing. Gastrointestinal:Denies constipation, diarrhea, bloody or black stools, hematemesis, nausea or vomiting, hemorrhoids, heartburn, abdominal pain, or dysphagia. Skin: Denies rashes Neurological: Denies memory difficulties, numbness or tingling, muscle weakness, paralysis of arms or legs, epilepsy or seizure, or frequent bothersome and headaches ENT: Complains of hayfever. Denies hearing loss, hearing aids, hearing ringing or buzzing i n ears, constantly runny nose, nasal obstruction, dentures, or hoarseness. Cardiovascular:Denies chest pain, palpitations, or swelling to legs Genitourinary: Denies painful urination, urine incontinence, waking up on average more than once per night to urinate, bloody urine, or impotence Musculoskeletal: Denies swollen joints, painful back, or painful joints. Psychiatric: Denies depression and anxiety. Endocrine: Denies enlarged thyroid. Hematology/ Lymph: Denies anemia or enlarged lymph glands. Objective: PHYSICAL EXAM: General: well developed, well nourished, in no acute distress. Head: normocephalic and atraumatic Eyes: Sclera clear Mouth: MMM Lungs: Clear to auscultate bilaterally and throughout Heart: regular rate and rhythm Abdomen: Soft, non tender, non distended, bowel tones positive times 4 quadrants, negative Mariza y's sign, negative rebound tenderness, no guarding, no hepatosplenomegaly palpated. Msk: symmetrical with no deformity, with normal posture and gait, normal strength. Extremities: no clubbing, cyanosis, edema, or deformity noted Neurologic: no focal deficits, cranial nerves II-XII grossly intact Skin: intact without lesions or rashes. Psych: alert and cooperative; normal mood and affect; normal attention span and concentration. Abstract on 03/30/2017 Component Date Value Ref Range Status Colonoscopy Impression, External 05/27/2016 Diagnoses: diverticulosis, no evidence of p olyps. Internal hemorrhoids.~ [facility] Dr. Evans Final Abstract on 03/17/2017 Component Date Value Ref Range Status HEP A IGM 12/29/2016 Non Reactive Non Reactive Final Hepatitis B Surface Ag, External 12/29/2016 Negative Final HEP B SURFACE ANTIBODY 12/29/2016 Negative Final HEP B C TOTAL AB 12/29/2016 Non Reactive Non Reactive Final HCV Ab 12/29/2016 negative Final Creatinine, External 12/22/2016 0.76 0.7 - 1.33 Final eGFR, External 12/22/2016 >60 60 - 99,999 Final LDL Cholesterol, External 12/22/2016 106* 0 - 100 Final Cholesterol, Total, External 12/22/2016 183 0 - 200 mg/dl Final HDL Cholesterol, External 12/22/2016 53.3 40 - 99,999 mg/dl Final Triglycerides, External 12/22/2016 117 30 - 150 Final TSH, External 12/22/2016 1.57 0.27 - 4.2 Final WBC, External 12/22/2016 7 4.5 - 11 Final HGB, External 12/22/2016 15.4 12 - 16 Final HCT, External 12/22/2016 45.8* 35 - 45 Final PLT, External 12/22/2016 200 140 - 440 Final Neutrophils %, External 12/22/2016 40.6 39 - 80 Final Lymphocytes %, External 12/22/2016 47.2* 24 - 44 Final Monocytes %, External 12/22/2016 8.5 0 - 12 Final Eosinophils %, External 12/22/2016 3.1 0 - 6 Final RBC, External 12/22/2016 4.98 3.8 - 5.1 Final MCV, External 12/22/2016 92 81 - 99 Final RDW, External 12/22/2016 13.7 10.5 - 15 Final UA Blood, External 12/22/2016 150 Final UA Glucose, External 12/22/2016 Normal Final UA Ketones, External 12/22/2016 Negative Final UA Ph, External 12/22/2016 5 5 - 9 Final UA Proteins, External 12/22/2016 Negative Final UA RBC, External 12/22/2016 50* 0 - 4 Final UA Specific [place], External 12/22/2016 1.011 1.005 - 1.03 Final UA Leukocyte Esterase, External 12/22/2016 Negative Final Vitamin D, 25-Hydroxy, External 12/22/2016 54 30 - 100 Final Sodium, External 12/22/2016 138 132 - 143 Final Potassium, External 12/22/2016 4.3 3.6 - 5.1 Final Chloride, External 12/22/2016 105 98 - 112 Final Carbon Dioxide, External 12/22/2016 20 19 - 31 Final Calcium, External 12/22/2016 10 8.4 - 10.2 Final Protein, Total, External 12/22/2016 7.5 6 - 8 Final Albumin, External 12/22/2016 4.3 3.5 - 5 Final Bilirubin, Total, External 12/22/2016 0.7 0 - 1.2 Final ALP, External 12/22/2016 91 31 - 130 Final AST, External 12/22/2016 48* 13 - 39 Final ALT, External 12/22/2016 70* 7 - 52 Final Glucose, External 12/22/2016 109* 70 - 100 Final BUN, External 12/22/2016 24* 6 - 23 Final Hemoglobin A1c, external 12/22/2016 5.9 Final MCH 12/22/2016 31.0 26.0 - 33.0 pg Final MCHC 12/22/2016 34.0 30.0 - 36.0 % Final Basophils % 12/22/2016 0.6 0 - 2 Final VLDL Cholesterol [place] 12/22/2016 23 4 - 40 Final Chol/HDL Ratio 12/22/2016 3.4 0.0 - 4.4 Final Non HDL Chol. (LDL+VLDL) 12/22/2016 130 0 - 130 Final BUN/Creatinine Ratio 12/22/2016 31.6* 6 - 28.6 Final Globulin 12/22/2016 3.2 1.8 - 3.5 Final Albumin/Globulin Ratio 12/22/2016 1.3 1.1 - 2.4 Final ANION GAP 12/22/2016 17 7 - 21 mmol/L Final COLLECTION METHOD 1 12/22/2016 Clean Catch Final Color 12/22/2016 straw Final CLARITY 12/22/2016 Clear Final BILIRUBIN UA 12/22/2016 Negative Negative Final NITRITE UA 12/22/2016 Negative Negative Final UROBILINOGEN UA 12/22/2016 Normal < 0.2 mg/dL, 1.0 mg/dL, 4.0 mg/dL, Normal, 1.0 E.U./ dL, 0.2 E.U./dL, 0.2 mg/dL, Negative, 1 mg/dL, <2.0 mg/dL Final CASTS 12/22/2016 Negative Final WBC, UA 12/22/2016 0 0 - 4 Final Squamous epithelial, UA, POC 12/22/2016 negative Final CRYSTAL UA 12/22/2016 Negative Final Bacteria, UA 12/22/2016 negative Final Abdominal ultrasound 01/24/2017: Impression: 1. Hepatomegaly with increased echotexture, may represent fatty infiltration or fibrosis. Assessment: 1. Fatty infiltration of liver Alpha Fetoprotein, Tumor Marker [id number]-[id number], Total ALIVIA Screen, Qual Smooth Muscle Ab Mitochrondrial Ab CBC with Differential Ceruloplasmin Comprehensive Metabolic Panel Ferritin Iron and Transferrin Protime INR US Guided Liver Biopsy 2. Obesity (BMI 30-39.9) 3. Elevated LFTs Plan: Patient's risk factors for Non Alcoholic Steatohepatitis (HARVEY) include: obesity and age. Ordered additional labs to determine if additional liver pathology present. Ordered liver biopsy to differentiate between hepatic steatosis and steatohepatitis, determ ine stage of fibrosis, and determine if evidence of additional liver pathology. Will follow up with results. Patient is to call with any question or concerns. Any fevers, chills, chest pain, SOB or other serious symptoms patient is to call the office or go to ER . Cc: Deep Grace This note was dictated using voice recognition software. Please contact me if there are an y questions regarding its content. documented in this encounter Plan of Treatment + +------+--------+ + + | Name | Type | Priori | Associated Diagnoses | Order Schedule | | | | ty | | | + +------+--------+ + + | Alpha Fetoprotein, | Lab | Routin | Fatty infiltration | Expected: | | Tumor Marker | | e | of liver | 03/31/2017, Expires: | | | | | | 07/29/2017 | + +------+--------+ + + | [id number]-0-Cyhmlnggexb, | Lab | Routin | Fatty infiltration | Expected: | | Total | | e | of liver | 03/31/2017, Expires: | | | | | | 07/29/2017 | + +------+--------+ + + | ALIVIA Screen, Qual | Lab | Routin | Fatty infiltration | Expected: | | | | e | of liver | 03/31/2017, Expires: | | | | | | 06/29/2017 | + +------+--------+ + + | Smooth Muscle Ab | Lab | Routin | Fatty infiltration | Expected: | | | | e | of liver | 03/31/2017, Expires: | | | | | | 07/29/2017 | + +------+--------+ + + | Mitochrondrial Ab | Lab | Routin | Fatty infiltration | Expected: | | | | e | of liver | 03/31/2017, Expires: | | | | | | 04/01/2018 | + +------+--------+ + + | CBC with | Lab | Routin | Fatty infiltration | 1 Occurrences | | Differential | | e | of liver | starting 03/31/2017 | | | | | | until 07/29/2017 | + +------+--------+ + + | Ceruloplasmin | Lab | Routin | Fatty infiltration | Expected: | | | | e | of liver | 03/31/2017, Expires: | | | | | | 07/29/2017 | + +------+--------+ + + | Comprehensive | Lab | Routin | Fatty infiltration | Expected: | | Metabolic Panel | | e | of liver | 03/31/2017, Expires: | | | | | | 07/29/2017 | + +------+--------+ + + | Ferritin | Lab | Routin | Fatty infiltration | Expected: | | | | e | of liver | 03/31/2017, Expires: | | | | | | 07/29/2017 | + +------+--------+ + + | Iron and Transferrin | Lab | Routin | Fatty infiltration | Expected: | | | | e | of liver | 03/31/2017, Expires: | | | | | | 07/29/2017 | + +------+--------+ + + | Protime INR | Lab | Routin | Fatty infiltration | Expected: | | | | e | of liver | 03/31/2017, Expires: | | | | | | 07/29/2017 | + +------+--------+ + + documented as of this encounter Procedures + +--------+ + + + | Procedure Name | Priori | Date/Time | Associated Diagnosis | Comments | | | ty | | | | + +--------+ + + + | IMAGING REPORT - | | 01/24/2017 | | Results for this | | EXTERNAL SCAN | | 12:00 AM | | procedure are in the | | | | PDT | | results section. | + +--------+ + + + | DIAGNOSTIC REPORT - | | 05/27/2016 | | Results for this | | EXTERNAL SCAN | | 12:00 AM | | procedure are in the | | | | PST | | results section. | + +--------+ + + + documented in this encounter Results US Guided Liver Biopsy (04/22/2017 11:29 AM PDT) + + | Specimen | + + | | + + + + + | Narrative | Performed At | + + + | ULTRASOUND GUIDED RANDOM LIVER CORE BIOPSY WITH MODERATE SEDATION | [facility] | | 04/22/2017 9:19 AM CLINICAL HISTORY: elevated lfts | | | COMPARISON: NONE AVAILABLE PROCEDURE: After explaining the | | | potential risks and benefits of the procedure to the patient, verbal | | | and written consent were obtained. With the patient in the supine | | | position, moderate sedation was administered per institutional | | | protocol. Ultrasound was utilized to identify a suitable site for | | | percutaneous liver biopsy in the right upper, lateral abdomen. The | | | overlying skin was prepped and draped in sterile fashion, and | | | approximately 9 cc 1% Xylocaine utilized for local anesthesia with | | | ultrasound guidance. A small skin maura was made to accommodate the | | | 17-gauge introducer needle, which was advanced into the liver without | | | difficulty under direct ultrasound visualization. Two 2-cm liver | | | core biopsies were performed through the introducer with an 18-gauge | | | Biopince biopsy gun. Specimens were placed in formalin and sent for | | | histologic analysis. The introducer was removed after ensuring | | | absence of back bleeding, and hemostasis achieved with manual | | | compression. The patient tolerated the procedure well, and there | | | were no immediate complications. They were transferred to recovery | | | in stable condition. Follow-up sonography of the liver | | | approximately one hour after the procedure demonstrated no new | | | hepatic parenchymal abnormality or perihepatic fluid to suggest the | | | presence of biopsy-related hemorrhage. These findings were | | | communicated to the same day surgery nurse caring for the patient. | | | IMPRESSION - 1. ULTRASOUND GUIDED RANDOM LIVER CORE BIOPSY WITH | | | MODERATE SEDATION, DESCRIBED. Dictated and Signed by: Kenton Liriano MD Electronically signed: 04/22/2017 1:34 PM | | + + + + + | Procedure Note | + + | Benton Beyer Results In - 04/22/2017 1:37 PM PDT ULTRASOUND GUIDED RANDOM LIVER CORE | | BIOPSY WITH MODERATE SEDATION 04/22/20179:19 AMCLINICAL HISTORY: elevated | | lftsCOMPARISON: NONE AVAILABLEPROCEDURE: After explaining the potential risks and | | benefits of the procedure tothe patient, verbal and written consent were obtained. With | | the patient in thesupine position, moderate sedation was administered per institutional | | protocol. Ultrasound was utilized to identify a suitable site for percutaneous | | liverbiopsy in the right upper, lateral abdomen. The overlying skin was prepped | | anddraped in sterile fashion, and approximately 9 cc 1% Xylocaine utilized forlocal | | anesthesia with ultrasound guidance. A small skin maura was made toaccommodate the | | 17-gauge introducer needle, which was advanced into the liverwithout difficulty under | | direct ultrasound visualization. Two 2-cm liver corebiopsies were performed through the | | introducer with an 18-gauge Biopince biopsygun. Specimens were placed in formalin and | | sent for histologic analysis. Theintroducer was removed after ensuring absence of back | | bleeding, and hemostasisachieved with manual compression. The patient tolerated the | | procedure well, andthere were no immediate complications. They were transferred to | | recovery instable condition.Follow-up sonography of the liver approximately one hour | | after the proceduredemonstrated no new hepatic parenchymal abnormality or perihepatic | | fluid tosuggest the presence of biopsy-related hemorrhage. These findings | | werecommunicated to the same day surgery nurse caring for the patient.IMPRESSION -1. | | ULTRASOUND GUIDED RANDOM LIVER CORE BIOPSY WITH MODERATE SEDATION, ASDESCRIBED.Dictated | | and Signed by: Kenton Liriano MD Electronically signed: 04/22/2017 1:34 PM | |stable condition. | | | |Follow-up sonography of the liver approximately one hour after the procedure | |demonstrated no new hepatic parenchymal abnormality or perihepatic fluid to | |suggest the presence of biopsy-related hemorrhage. These findings were | |communicated to the same day surgery nurse caring for the patient. | | | |IMPRESSION - | |1. ULTRASOUND GUIDED RANDOM LIVER CORE BIOPSY WITH MODERATE SEDATION, | |DESCRIBED. | | | |Dictated and Signed by: Kenton Liriano MD | | Electronically signed: 04/22/2017 1:34 PM | + + + +---------+ + + | Performing | Address | City/State/Zipcode | Phone Number | | Organization | | | | + +---------+ + + | [facility] | | | | + +---------+ + + IMAGING REPORT - EXTERNAL SCAN (01/24/2017 12:00 AM PDT) + + + | Narrative | Performed At | + + + | Ordered by an | | | unspecified provider. | | + + + DIAGNOSTIC REPORT - EXTERNAL SCAN (05/27/2016 12:00 AM PST) + + + | Narrative | Performed At | + + + | Ordered by an | | | unspecified provider. | | + + + documented in this encounter Visit Diagnoses + + | Diagnosis | + + | Fatty infiltration of liver - Primary Other chronic nonalcoholic liver disease | + + | Obesity (BMI 30-39.9) Obesity, unspecified | + + | Elevated LFTs Other abnormal blood chemistry | + + documented in this encounter
--- OUTSIDE RECORDS SUMMARY | ~2019-06-29 | XMS | Encounter Summary ---
Demographics + + + | Address | [address] | | | [place] [address] | + + + | Home Phone | | + + + | Preferred Language | Unknown | + + + | Marital Status | | + + + | Pentecostal Affiliation | Unknown | + + + | Race | Unknown | + + + | Ethnic Group | Unknown | + + + Author + + + | Author | [facility] | | | and [place] | + + + | Organization | [facility] | | | and [place] [...] Team Providers + +------+ + | Care Azure Architect Name | Role | Phone | + +------+ + | Deep Grace DO | PCP | | + +------+ + Encounter Details +--------+ + + + + | Date | Type | Department | Care Team | Description | +--------+ + + + + | 04/21/ | Abstract | [facility] | Rita, | | | 2017 | | GASTROENTEROLOGY | AMISHA [address] | | | | | [address] | [place] | | | | | [address] | [place] | | | | | [phone] | [address] | | | | | [phone] | | | +--------+ + + + [...] +--------+ + + + | EXTERNAL LAB: BUN | Routin | 04/18/2017 | | Results for this | | | e | | | procedure are in the | | | | | | results section. | + +--------+ + + + | EXTERNAL LAB: | Routin | 04/18/2017 | | Results for this | | GLUCOSE | e | | | procedure are in the | | | | | | results section. | + +--------+ + + + | EXTERNAL LAB: ALT | Routin | 04/18/2017 | | Results for this | | | e | | | procedure are in the | | | | | | results section. | + +--------+ + + + | EXTERNAL LAB: AST | Routin | 04/18/2017 | | Results for this | | | e | | | procedure are in the | | | | | | results section. | + +--------+ + + + | EXTERNAL LAB: | Routin | 04/18/2017 | | Results for this | | ALKALINE PHOSPHATASE | e | | | procedure are in the | | | | | | results section. | + +--------+ + + + | EXTERNAL LAB: | Routin | 04/18/2017 | | Results for this | | BILIRUBIN, TOTAL | e | | | procedure are in the | | | | | | results section. | + +--------+ + + + | EXTERNAL LAB: | Routin | 04/18/2017 | | Results for this | | ALBUMIN | e | | | procedure are in the | | | | | | results section. | + +--------+ + + + | EXTERNAL LAB: | Routin | 04/18/2017 | | Results for this | | PROTEIN, TOTAL | e | | | procedure are in the | | | | | | results section. | + +--------+ + + + | EXTERNAL LAB: | Routin | 04/18/2017 | | Results for this | | CALCIUM | e | | | procedure are in the | | | | | | results section. | + +--------+ + + + | EXTERNAL LAB: CARBON | Routin | 04/18/2017 | | Results for this | | DIOXIDE | e | | | procedure are in the | | | | | | results section. | + +--------+ + + + | EXTERNAL LAB: | Routin | 04/18/2017 | | Results for this | | CHLORIDE | e | | | procedure are in the | | | | | | results section. | + +--------+ + + + | EXTERNAL LAB: | Routin | 04/18/2017 | | Results for this | | POTASSIUM | e | | | procedure are in the | | | | | | results section. | + +--------+ + + + | EXTERNAL LAB: SODIUM | Routin | 04/18/2017 | | Results for this | | | e | | | procedure are in the | | | | | | results section. | + +--------+ + + + | EXTERNAL LAB: IRON | Routin | 04/18/2017 | | Results for this | | TOTAL | e | | | procedure are in the | | | | | | results section. | + +--------+ + + + | EXTERNAL LAB: IRON | Routin | 04/18/2017 | | Results for this | | SATURATION | e | | | procedure are in the | | | | | | results section. | + +--------+ + + + | EXTERNAL LAB: IRON | Routin | 04/18/2017 | | Results for this | | BINDING CAPACITY | e | | | procedure are in the | | | | | | results section. | + +--------+ + + + | EXTERNAL LAB: | Routin | 04/18/2017 | | Results for this | | FERRITIN | e | | | procedure are in the | | | | | | results section. | + +--------+ + + + | EXTERNAL LAB: CBC | Routin | 04/18/2017 | | Results for this | | | e | | | procedure are in the | | | | | | results section. | + +--------+ + + + | EXTERNAL LAB: | Routin | 04/18/2017 | | Results for this | | PROTIME INR | e | | | procedure are in the | | | | | | results section. | + +--------+ + + + | EXTERNAL LAB: EGFR | Routin | 04/18/2017 | | Results for this | | | e | | | procedure are in the | | | | | | results section. | + +--------+ + + + | EXTERNAL LAB: | Routin | 04/18/2017 | | Results for this | | CREATININE | e | | | procedure are in the | | | | | | results section. | + +--------+ + + + | ALIVIA, LUCAS,C4, DNA DS, | Routin | 04/18/2017 | | Results for this | | AMA, APCA1+ | e | | | procedure are in the | | | | | | results section. | + +--------+ + + + | IRON PROFILE, | Routin | 04/18/2017 | | Results for this | | (FE+IBC+FERR+%SAT) | e | | | procedure are in the | | | | | | results section. | + +--------+ + + + | HC ALPHA-1 | Routin | 04/18/2017 | | Results for this | | ANTITRYPSIN | e | | | procedure are in the | | | | | | results section. | + +--------+ + + + | MITOCHONDRIAL AB | Routin | 04/18/2017 | | Results for this | | | e | | | procedure are in the | | | | | | results section. | + +--------+ + + + | CERULOPLASMIN | Routin | 04/18/2017 | | Results for this | | | e | | | procedure are in the | | | | | | results section. | + +--------+ + + + | ALPHA FETOPROTEIN, | Routin | 04/18/2017 | | Results for this | | TUMOR MARKER | e | | | procedure are in the | | | | | | results section. | + +--------+ + + + | SMOOTH MUSCLE AB | Routin | 04/18/2017 | | Results for this | | | e | | | procedure are in the | | | | | | results section. | + +--------+ + + + | CBC WITH | Routin | 04/18/2017 | | Results for this | | DIFFERENTIAL | e | | | procedure are in the | | | | | | results section. | + +--------+ + + + | COMPREHENSIVE | Routin | 04/18/2017 | | Results for this | | METABOLIC PANEL | e | | | procedure are in the | | | | | | results section. | + +--------+ + + + documented in this encounter Results HC ALPHA-1 ANTITRYPSIN (04/18/2017) + +-------+ + + + | Component | Value | Ref Range | Performed | Pathologist | | | | | At | Signature | + +-------+ + + + | A-1 | 146 | 84 - 218 | | | | Antitrypsin | | | | | + +-------+ + + + + + | Specimen | + + | | + + ALIVIA, LUCAS,C4, DNA DS, AMA, APCA1+ (04/18/2017) + +-------+ + + + | Component | Value | Ref Range | Performed | Pathologist | | | | | At | Signature | + +-------+ + + + | ALIVIA Titer | <1:80 | 0 - 1:80 | | | + +-------+ + + + | Nuclear Ab | N/A | | | | | Pattern.Nuc | | | | | | leolar | | | | | + +-------+ + + + + + | Specimen | + + | Blood | + + CBC with Differential (04/18/2017) + +-------+ + + + | Component [...] + + + | Basophils % | 0.5 | 0 - 2 | | | + +-------+ + + + + + | Specimen | + + | Blood | + + Alpha Fetoprotein, Tumor Marker (04/18/2017) + +-------+ + + + | Component | Value | Ref Range | Performed | Pathologist | | | | | At | Signature | + +-------+ + + + | AFP Tumor | 2.4 | 0.0 - 7.0 ng/mL | | | | Marker | | | | | + +-------+ + + + + + | Specimen | + + | Blood | + + Ceruloplasmin (04/18/2017) + +-------+ + + + | Component | Value | Ref Range | Performed | Pathologist | | | | | At | Signature | + +-------+ + + + | CERULOPLASM | 29.9 | 18 - 58 | | | | IN | | | | | + +-------+ + + + + + | Specimen | + + | Blood | + + Smooth Muscle Ab (04/18/2017) + +-------+ + + + | Component | Value | Ref Range | Performed | Pathologist | | | | | At | Signature | + +-------+ + + + | Smooth | 1:80 | 0 - 1:40 | | | | Muscle Ab | | | | | + +-------+ + + + + + | Specimen | + + | Blood | + + Mitochrondrial Ab (04/18/2017) + +-------+ + + + | Component | Value | Ref Range | Performed | Pathologist | | | | | At | Signature | + +-------+ + + + | MITOCHONDRI | <1:20 | 0 - 1:40 | | | | AL AB | | | | | + +-------+ + + + + + | Specimen | + + | Blood | + + Comprehensive Metabolic Panel (04/18/2017) + +-------+ + + + | Component | Value | Ref Range | Performed | Pathologist | | | | | At | Signature | + +-------+ + + + | Anion Gap | 20 | 7 - 21 mmol/L | | | + +-------+ + + + | BUN/Creatin | 24.4 | 6 - 28.6 | | | | ine Ratio | | | | | + +-------+ + + + | Globulin | 2.4 | 1.8 - 3.5 | | | + +-------+ + + + | Albumin/Any | 1.9 | 1.1 - 2.4 | | | | bulin Ratio | | | | | + +-------+ + + + + + | Specimen | + + | Blood | + + Iron Profile (04/18/2017) + +-------+ + + + | Component | Value | Ref Range | Performed | Pathologist | | | | | At | Signature | + +-------+ + + + | TIBC | 286 | 245 - 400 ug/dL | | | + +-------+ + + + | TRANSFERRIN | 211.5 | 192.0 - 382.0 | | | | | | mg/dL | | | + +-------+ + + + + + | Specimen | + + | Blood | + + External Lab: CBC (04/18/2017) + + + + + + | Component | Value | Ref Range | Performed | Pathologist | | | | | At | Signature | + + + + + + | WBC, | 6.7 | 4.5 - 11 | EXTERNAL | | | External | | | LAB | | + + + + + + | HGB, | 14.9 | 12 - 16 | EXTERNAL | | | External | | | LAB | | + + + + + + | HCT, | 43.8 | 35 - 45 | EXTERNAL | | | External | | | LAB | | + + + + + + | PLT, | 198 | 140 - 440 | EXTERNAL | | | External | | | LAB | | + + + + + + | Neutrophils | 39.9 | 39 - 80 | EXTERNAL | | | %, | | | LAB | | | External | | | | | + + + + + + | Lymphocytes | 50.2 (A) | 24 - 44 | EXTERNAL | | | %, | | | LAB | | | External | | | | | + + + + + + | Monocytes | 6.1 | 0 - 12 | EXTERNAL | | | %, External | | | LAB | | + + + + + + | Eosinophils | 3.3 | 0 - 6 | EXTERNAL | | | %, | | | LAB | | | External | | | | | + + + + + + | RBC, | 4.74 | 3.5 - 5.1 | EXTERNAL | | | External | | | LAB | | + + + + + + | MCV, | 92 | 81 - 99 | EXTERNAL | | | External | | | LAB | | + + + + + + | RDW, | 13.1 | 10.5 - 15 | EXTERNAL | | | External | | | LAB | | + + + + + + + +---------+ + + | Performing | Address | City/State/Zipcode | Phone Number | | Organization | | | | + +---------+ + + | EXTERNAL LAB | | | | + +---------+ + + External Lab: Buddy BYRNES (04/18/2017) + +-------+ + + + | Component | Value | Ref Range | Performed | Pathologist | | | | | At | Signature | + +-------+ + + + | INR, | 1 | | EXTERNAL | | | External | | | LAB | | + +-------+ + + + | PT, | 13.2 | 12 - 15 | EXTERNAL | | | [...] | + +---------+ + + External Lab: KATHERINE (04/18/2017) + +-------+ + + + | Component | Value | Ref Range | Performed | Pathologist | | | | | At | Signature | + +-------+ + + + | BUN, | 22 | 6 - 23 | EXTERNAL | | | External | | | LAB | | + +-------+ + + + + +---------+ + + | Performing | Address | City/State/Zipcode | Phone Number | | Organization | | | | + +---------+ + + | EXTERNAL LAB | | | | + +---------+ + + External Lab: Glucose (04/18/2017) + +-------+ + + + | Component | Value | Ref Range | Performed | Pathologist | | | | | At | Signature | + +-------+ + + + | Glucose, | 98 | 70 - 100 | EXTERNAL | | | External | | | LAB | | + +-------+ + + + + +---------+ + + | Performing | Address | City/State/Zipcode | Phone Number | | Organization | | | | + +---------+ + + | EXTERNAL LAB | | | | + +---------+ + + External Lab: ALT (04/18/2017) + +-------+ + + + | Component | Value | Ref Range | Performed | Pathologist | | | | | At | Signature | + +-------+ + + + | ALT, | 25 | 7 - 52 | EXTERNAL | | | External | | | LAB | | + +-------+ + + + + +---------+ + + | Performing | Address | City/State/Zipcode | Phone Number | | Organization | | | | + +---------+ + + | EXTERNAL LAB | | | | + +---------+ + + External Lab: AST (04/18/2017) + +-------+ + + + | Component | Value | Ref Range | Performed | Pathologist | | | | | At | Signature | + +-------+ + + + | AST, | 19 | 13 - 39 | EXTERNAL | | | External | | | LAB | | + +-------+ + + + + +---------+ + + | Performing | Address | City/State/Zipcode | Phone Number | | Organization | | | | + +---------+ + + | EXTERNAL LAB | | | | + +---------+ + + External Lab: Alkaline Phosphatase (04/18/2017) + +-------+ + + + | Component | Value | Ref Range | Performed | Pathologist | | | | | At | Signature | + +-------+ + + + | ALP, | 87 | 31 - 130 | EXTERNAL | | | External | | | LAB | | + +-------+ + + + + +---------+ + + | Performing | Address | City/State/Zipcode | Phone Number | | Organization | | | | + +---------+ + + | EXTERNAL LAB | | | | + +---------+ + + External Lab: Bilirubin, Total (04/18/2017) + +-------+ + + + | Component | Value | Ref Range | Performed | Pathologist | | | | | At | Signature | + +-------+ + + + | Bilirubin, | 0.6 | 0 - 1.2 | EXTERNAL | [...] + +---------+ + + External Lab: Albumin (04/18/2017) + +-------+ + + + | Component | Value | Ref Range | Performed | Pathologist | | | | | At | Signature | + +-------+ + + + | Albumin, | 4.5 | 3.5 - 5 | EXTERNAL | | | External | | | LAB | | + +-------+ + + + + +---------+ + + | Performing | Address | City/State/Zipcode | Phone Number | | Organization | | | | + +---------+ + + | EXTERNAL LAB | | | | + +---------+ + + External Lab: Protein, Total (04/18/2017) + +-------+ + + + | Component | Value | Ref Range | Performed | Pathologist | | | | | At | Signature | + +-------+ + + + | Protein, | 6.9 | 6 - 8 | EXTERNAL | [...] + +---------+ + + External Lab: Calcium (04/18/2017) + +-------+ + + + | Component | Value | Ref Range | Performed | Pathologist | | | | | At | Signature | + +-------+ + + + | Calcium, | 9.9 | 8.4 - 10.2 | EXTERNAL | | | External | | | LAB | | + +-------+ + + + + +---------+ + + | Performing | Address | City/State/Zipcode | Phone Number | | Organization | | | | + +---------+ + + | EXTERNAL LAB | | | | + +---------+ + + External Lab: Carbon Dioxide (04/18/2017) + +-------+ + + + | Component | Value | Ref Range | Performed | Pathologist | | | | | At | Signature | + +-------+ + + + | Carbon | 22 | 19 - 31 | EXTERNAL | [...] + +---------+ + + External Lab: Chloride (04/18/2017) + +-------+ + + + | Component | Value | Ref Range | Performed | Pathologist | | | | | At | Signature | + +-------+ + + + | Chloride, | 102 | 95 - 112 | EXTERNAL | | | External | | | LAB | | + +-------+ + + + + +---------+ + + | Performing | Address | City/State/Zipcode | Phone Number | | Organization | | | | + +---------+ + + | EXTERNAL LAB | | | | + +---------+ + + External Lab: Potassium (04/18/2017) + +---------+ + + + | Component | Value | Ref Range | Performed | Pathologist | | | | | At | Signature | + +---------+ + + + | Potassium, | 4.2 (A) | 5.1 - 102 | EXTERNAL | | | External | | | LAB | | + +---------+ + + + + +---------+ + + | Performing | Address | City/State/Zipcode | Phone Number | | Organization | | | | + +---------+ + + | EXTERNAL LAB | | | | + +---------+ + + External Lab: Sodium (04/18/2017) + +-------+ + + + | Component | Value | Ref Range | Performed | Pathologist | | | | | At | Signature | + +-------+ + + + | Sodium, | 140 | 132 - 143 | EXTERNAL | | | External | | | LAB | | + +-------+ + + + + +---------+ + + | Performing | Address | City/State/Zipcode | Phone Number | | Organization | | | | + +---------+ + + | EXTERNAL LAB | | | | + +---------+ + + External Lab: Iron Total (04/18/2017) + +-------+ + + + | Component | Value | Ref Range | Performed | Pathologist | | | | | At | Signature | + +-------+ + + + | Iron, | 78.8 | 37 - 160 | EXTERNAL | | | External | | | LAB | | + +-------+ + + + + +---------+ + + | Performing | Address | City/State/Zipcode | Phone Number | | Organization | | | | + +---------+ + + | EXTERNAL LAB | | | | + +---------+ + + External Lab: Iron Saturation (04/18/2017) + +-------+ + + + | Component | Value | Ref Range | Performed | Pathologist | | | | | At | Signature | + +-------+ + + + | Iron | 26.6 | 20 - 55 | EXTERNAL | | | Saturation, | | | LAB | | | External | | | | | + +-------+ + + + + +---------+ + + | Performing | Address | City/State/Zipcode | Phone Number | | Organization | | | | + +---------+ + + | EXTERNAL LAB | | | | + +---------+ + + External Lab: Iron Binding Capacity (04/18/2017) + +-------+ + + + | Component | Value | Ref Range | Performed | Pathologist | | | | | At | Signature | + +-------+ + + + | Iron | 217 | | EXTERNAL | | | Binding | | | LAB | | | Capacity, | | | | | | External | | | | | + +-------+ + + + + +---------+ + + | Performing | Address | City/State/Zipcode | Phone Number | | Organization | | | | + +---------+ + + | EXTERNAL LAB | | | | + +---------+ + + External Lab: Ferritin (04/18/2017) + + + + + + | Component | Value | Ref Range | Performed | Pathologist | | | | | At | Signature | + + + + + + | Ferritin, | 476.2 (A) | 13 - 150 | EXTERNAL | | | External | | | LAB | | + + + + + + + +---------+ + + | Performing | Address | City/State/Zipcode | Phone Number | | Organization | | | | + +---------+ + + | EXTERNAL LAB | | | | + +---------+ + + External Lab: eGFR (04/18/2017) + +-------+ + + + | Component [...] + +---------+ + + External Lab: Creatinine (04/18/2017) + +-------+ + + + | Component | Value | Ref Range | Performed | Pathologist | | | | | At | Signature | + +-------+ + + + | Creatinine, | 0.9 | 0.7 - 1.25 | EXTERNAL | | | External | [...]
--- OUTSIDE RECORDS SUMMARY | ~2019-06-29 | XMS | Encounter Summary ---
Demographics + + + | Address | [address] | | | [place] [address] | + + + | Home Phone | | + + + | Preferred Language | Unknown | + + + | Marital Status | | + + + | Buddhist Affiliation | Unknown | + + + | Race | Unknown | + + + | Ethnic Group | Unknown | + + + Author + + + | Author | [facility] | | | and [place] | + + + | Organization | [facility] | | | and [place] [...] Team Providers + +------+ + | [employer] Controls Engineer Name | Role | Phone | + [...] | [address] | [place] | | | | | [address] | [place] | | | | | [address] | [address] | | | | | [phone] | | | +--------+ + + + [...] - 1.03 | EXTERNAL | | | [place], | | | LAB | | | [...]
--- OUTSIDE RECORDS SUMMARY | ~2019-06-29 | XMS | Encounter Summary ---
Demographics + + + | Address | [address] | | | [place] [address] | + + + | Home Phone | | + + + | Preferred Language | Unknown | + + + | Marital Status | | + + + | Catholic Affiliation | Unknown | + + + | Race | Unknown | + + + | Ethnic Group | Unknown | + + + Author + + + | Author | [facility] | | | and [place] | + + + | Organization | [facility] | | | and [place] [...] Team Providers + +------+ + | Care Salesperson Terrazzo Tiles Name | Role | Phone | + [...] | infiltration | Anu, | [address] | | | | | of liver | DRILLER MACHINE [address] | [place], | | | | | Procedures | [place], [place] | [place] | | | | | [place] Guided | [address] | [address] | | | | | Liver Biopsy | [place] | Phone: | | | | | [place] | [address] | [phone] | | | | | GUIDE NEEDLE | Phone: | Fax: | | | | | BIOPSY [place] | [phone] | [phone] | | | | | BIOPSY LIVER | Fax: | | | | | | NEEDLE | [phone] | | | | | | PERCUTANEOUS | | | +--------+--------+ + + + + Reason for Visit Auth/Cert +--------+--------+ + + + + | Status | Reason | Specialty | Diagnoses / | Referred By | Referred To | | | | | Procedures | Contact | Contact | +--------+--------+ + + + + | | | | Diagnoses | | | | | | | elevated | | | | | | | lfts | | | | | | | Procedures | | | | | | | US GUIDED | | | | | | | LIVER BX | | | +--------+--------+ + + + + Encounter Details +--------+ + + + + | Date | Type | Department | Care Team | Description | +--------+ + + + + | 04/22/ | [facility] | [facility] | Kenton Liriano MD | Fatty infiltration | | 2017 | Encounter | MED CTR IR [facility] OP | [address] | of liver | | | | [address] | [place] | | | | | [place], [place] | [address] | | | | | [address] | [phone] | | | | | [phone] | | | +--------+ + + + [...] + + + | Blood Pressure | 102/70 | 04/22/2017 11:16 AM | | | | | PDT | | + + + + + | Pulse | 72 | 04/22/2017 11:24 AM | | | | | PDT | | + + + + + | Temperature | 37.2 C (99 F) | 04/22/2017 10:00 AM | | | | | PDT | | + + + + + | Respiratory Rate | 13 | 04/22/2017 11:00 AM | | | | | PDT | | + + + + + | Oxygen Saturation | 96% | 04/22/2017 11:24 AM | | | | | PDT | | + + + + + | Inhaled Oxygen | - | - | | | Concentration | | | | + + + + + | Weight | 97 kg (213 lb 13.5 | 04/22/2017 8:04 AM | | | | oz) | PDT | | + + + + + | Height | 162.6 cm (5' 4") | 04/22/2017 8:04 AM | | | | | PDT | | + + + + + | Body Mass Index | 36.71 | 04/22/2017 8:04 AM | | | | | PDT | | + + + + + documented in this encounter Discharge Instructions Instructions Sandy Alejo RN - 04/22/2017 Recovery After Procedural Sedation (Adult) You have been given medicine by vein to make you sleep during your surgery. This may have i ncluded both a pain medicine and sleeping medicine. Most of the effects have worn off. But y ou may still have some drowsiness for the next 6 to 8 hours. Home care Follow these guidelines when you get home: For the next 8 hours, you should be watched by a responsible adult. This person should m jennifer sure your condition is not getting worse. Don't drink any alcoholfor the next [address], operate dangerous machinery, or make important business or personal decisio nsduring the next 24 hours. Note: Your healthcare provider may tell you not to take any medicine by mouth for pain or s leep in the next 4 hours. These medicines may react with the medicines you were given in the hospital. This could cause a much stronger response than usual. Follow-up care Follow up with your healthcare provider if you are not alert and back to your usual level o f activity within 12 hours. When to seek medical advice Call your healthcare provider right away if any of these occur: Drowsiness gets worse Weakness or dizziness gets worse Repeated vomiting You can't be awakened Date Last Reviewed: 04/13/201619994782-7055 [employer] [address] [place] [address], [place] [address]. All righ ts reserved. This information is not intended as a substitute for professional medical care. Always follow your healthcare professional's instructions. POST BIOPSY: Watch for signs or symptoms of infection (high fever, redness) No soaking in hot tub, bath tub, pool x one week - showers are okay. Leave dressing on x 24 hours. No heavy lifting x 48 hours. Biopsy results can take 5-7 business days - please follow up with your provider regarding r esults. documented in this encounter Medications at Time of Discharge + + + +---------+--------+ + | Medication | Sig | Dispensed | Refills | Start | End Date | | | | | | Date | | + + + +---------+--------+ + | aspirin 81 mg EC | Take 81 mg by mouth | | 0 | | | | tablet | Daily. | | | | | + + + +---------+--------+ + | calcium, as | Take 600 mg by mouth | | 0 | | | | carbonate, | 2 times daily (with | | | | | | (CALTRATE) 600 mg | breakfast & | | | | | | tablet | dinner). | | | | | + + + +---------+--------+ + | cholecalciferol | Take 2,000 Units by | | 0 | | | | (VITAMIN D-3) 2000 | mouth 2 times daily. | | | | | | units TABS | | | | | | + + + +---------+--------+ + | diclofenac | Apply 2-4 g | | 0 | | | | (VOLTAREN) 1% GEL | topically 4 times | | | | | | | daily. | | | | | + + + +---------+--------+ + | fish oil 1,000 mg | Take 1,000 mg by | | 0 | | | | capsule | mouth 2 times daily. | | | | | + + + +---------+--------+ + | Flaxseed, Linseed, | Take 1 capsule by | | 0 | | | | (FLAXSEED OIL) 1000 | mouth Daily. | | | | | | MG CAPS | | | | | | + + + +---------+--------+ + | | Take by mouth 2 | | 0 | | | | Glucosamine-Chondroi | times daily. | | | | | | tin [id number] | | | | | | | MG/30ML LIQD | | | | | | + + + +---------+--------+ + | lovastatin | Take 40 mg by mouth | | 0 | | | | (MEVACOR) 40 MG | nightly. | | | | | | tablet | | | | | | + + + +---------+--------+ + | Magnesium | Take by mouth. | | 0 | | | | Aspartate 65 MG TABS | | | | | | + + + +---------+--------+ + | Multiple | Take 1 tablet by | | 0 | | | | Vitamins-Minerals | mouth Daily. | | | | | | (OCUVITE PO) | | | | | | + + + +---------+--------+ + | multivitamin | Take 1 tablet by | | 0 | | | | tablet | mouth Daily. | | | | | + + + +---------+--------+ + | niacin 500 mg | Take 500 mg by mouth | | 0 | | | | tablet | 2 times daily (with | | | | | | | breakfast & | | | | | | | dinner). | | | | | + + + +---------+--------+ + | pramipexole | Take 0.375 mg by | | 0 | | | | (MIRAPEX) 0.125 MG | mouth 3 times daily. | | | | | | tablet | | | | | | + + + +---------+--------+ + | Probiotic Product | Take by mouth. | | 0 | | | | (PROBIOTIC DAILY PO) | | | | | | + + + +---------+--------+ + | tocopherol | Take 400 Units by | | 0 | | | | (VITAMIN E) 400 | mouth Daily. | | | | | | units capsule | | | | | | + + + +---------+--------+ + | zinc 50 MG TABS | Take 50 mg by mouth | | 0 | | | | | Daily. | | | | | + + + +---------+--------+ + documented as of this encounter Plan of Treatment + + +--------+ + + | Name | Type | Priori | Associated Diagnoses | Order Schedule | | | | ty | | | + + +--------+ + + | Surgical Pathology | Pathology | Routin | | One Time for 1 | | Exam | and | e | | Occurrences starting | | | Cytology | | | 04/22/2017 until | | | | | | 04/22/2017 | + + +--------+ + + documented as of this encounter Procedures + +--------+ + + + | Procedure Name | Priori | Date/Time | Associated Diagnosis | Comments | | | ty | | | | + +--------+ + + + | US GUIDED LIVER | Routin | 04/22/2017 | Fatty infiltration | Results for this | | BIOPSY | e | 11:29 AM | of liver | procedure are in the | | | | PDT | | results section. | + +--------+ + + + | DI: OTHER | | 04/22/2017 | elevated lfts | | | | | 9:16 AM | | | | | | PDT | | | + +--------+ + + + | PROTIME INR | Routin | 04/22/2017 | | Results for this | | | e | 8:17 AM | | procedure are in the | | | | PDT | | results section. | + +--------+ + + + | CBC NO DIFFERENTIAL | STAT | 04/22/2017 | | Results for this | | | | 8:17 AM | | procedure are in the | | | | PDT | | results section. | + +--------+ + + + | SURGICAL PATHOLOGY | Routin | 04/22/2017 | | Results for this | | EXAM | e | 12:00 AM | | procedure are [...] SEDATION, DESCRIBED. Dictated and Signed by: Kenton | | | MD Heri Electronically signed: 04/22/2017 1:34 PM | | [...] | | | + +---------+ + + Protime INR (04/22/2017 8:17 AM PDT) + + + + + + | Component | Value | Ref Range | Performed | Pathologist | | | | | At | Signature | + + + + + + | Prothrombin | 12.6 | 11.3 - 13.9 | [facility] | | | Time | | seconds | [facility] | | | | | | [facility] | | | | | | CENTER - | | | | | | LABORATORY | | + + + + + + | INR | 0.95Comment: Usual Oral | 0.90 - 1.10 | [facility] | | | | Anticoagulation Range: | | [facility] | | | | 2.0 - 3.0High | | MEDICAL | | | | Level Oral | | CENTER - | | | | Anticoagulation Range: | | LABORATORY | | | | 2.5 - 3.5 | | | | + + + + + + + + | Specimen | + + | Blood | + + + + + + + | Performing | Address | City/State/Zipcode | Phone Number | | Organization | | | | + + + + + | [facility] | [address] | [place] | [phone] | | [facility] | | [address] | | | - LABORATORY | | | | + + + + + CBC no Differential (04/22/2017 8:17 AM PDT) + +-------+ + + + | Component | Value | Ref Range | Performed | Pathologist | | | | | At | Signature | + +-------+ + + + | WBC | 7.3 | 4.0 - 11.0 K/uL | [facility] | | | | | | [facility] | | | | | | MEDICAL | | | | | | CENTER - | | | | | | LABORATORY | | + +-------+ + + + | RBC | 4.75 | 3.70 - 5.20 | [facility] | | | | | M/uL | [facility] | | | | | | MEDICAL | | | | | | CENTER - | | | | | | LABORATORY | | + +-------+ + + + | Hemoglobin | 15.1 | 11.5 - 16.0 | [facility] | | | | | g/dL | [facility] | | | | | | MEDICAL | | | | | | CENTER - | | | | | | LABORATORY | | + +-------+ + + + | Hematocrit | 43.9 | 34.0 - 47.0 % | [facility] | | | | | | [facility] | | | | | | MEDICAL | | | | | | CENTER - | | | | | | LABORATORY | | + +-------+ + + + | MCV | 92.3 | 83.0 - 101.0 fL | [facility] | | | | | | [facility] | | | | | | MEDICAL | | | | | | CENTER - | | | | | | LABORATORY | | + +-------+ + + + | MCH | 31.7 | 28.0 - 35.0 pg | [facility] | | | | | | [facility] | | | | | | MEDICAL | | | | | | CENTER - | | | | | | LABORATORY | | + +-------+ + + + | MCHC | 34.3 | 32.0 - 36.0 | [facility] | | | | | g/dL | [facility] | | | | | | MEDICAL | | | | | | CENTER - | | | | | | LABORATORY | | + +-------+ + + + | RDW-CV | 13.1 | <15.0 % | [facility] | | | | | | [facility] | | | | | | MEDICAL | | | | | | CENTER - | | | | | | LABORATORY | | + +-------+ + + + | Platelet | 195 | 140 - 440 K/uL | [facility] | | | Count | | | [facility] | | | | | | MEDICAL | | | | | | CENTER - | | | | | | LABORATORY | | + +-------+ + + + | MPV | 8.0 | fL | [facility] | | | | | | [facility] | | | | | | MEDICAL | | | | | | CENTER - | | | | | | LABORATORY | | + +-------+ + + + + + | Specimen | + + | Blood | + + + + + + + | Performing | Address | City/State/Zipcode | Phone Number | | Organization | | | | + + + + + | [facility] | [address] | [place] | [phone] | | [facility] | | [address] | | | - LABORATORY | | | | + + + + + Surgical Pathology Exam (04/22/2017 12:00 AM PDT) + + | Specimen | + + | | + + + + + | Narrative | Performed At | + + + | SPECIMEN(S): A US GUIDED LIVER, RIGHT LOBE SPECIMEN SOURCE: A. US | [facility] | | GUIDED LIVER, RIGHT LOBE CLINICAL HISTORY: Elevated LFTs. 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 - Mild steatosis. COMMENT: Available | | | laboratory data indicates mild elevation of transaminases with | | | AST-to-ALT ratio of less than 1. Laboratory tests are negative for | | | hepatitis A, B and C. More recently, studies for transaminases were | | | normal. Ferritin was elevated, but iron binding capacity was | | | normal. ALIVIA titer was indicated to be less than 1:80, | | | antimitochondrial antibody titer less than 1:20 and smooth muscle | | | antibody positive at 1:80. There are moderate numbers of macrophages | | | containing diastase-resistant material scattered within the liver. | | | These are markers of prior inflammation and may correlate with the | | | earlier elevated transaminases that have normalized. The mild | | | inflammatory changes are predominantly portal based with relative | | | sparing of central vein regions (acinar zone 3). This makes | | | steatohepatitis a less likely explanation for the inflammatory | | | changes present, but cannot be ruled out. There are scattered | | | eosinophils, and this raises the possibility of some form of | | | medication-associated liver injury. Review of the patient's | | | medications (prescribed, sbeo-qoo-kabguuw and herbal remedies) may be | | | informative. Since there is negligible plasma cell component to the | | | inflammation and an absence of active interface hepatitis, autoimmune | | | hepatitis appears unlikely despite the low level anti-smooth muscle | | | antibody lab test. In addition, the patient has normal globulin | | | levels, and typically patients with autoimmune hepatitis will have | | | elevated IgG. There are no features to suggest primary biliary tract | | | lesion. BM:caw:C2NR GROSS DESCRIPTION: The specimen is labeled | | | and designated "Jose [place], liver" and designated "liver | | | right lobe" on the requisition. Received in formalin are two orange | | | colored cores of tissue, less than 0.1 cm in width to 2.2-2.5 cm. | | | All into (A1). yt:[facility] MICROSCOPIC EXAMINATION: The liver | | | biopsy consists of two cores of liver tissue with aggregate length of | | | about 45 mm, width up to 0.8 mm, and containing more than 25 portal | | | areas for evaluation. Hepatic architecture is mildly abnormal due | | | to expansion of portal regions by lymphocytic inflammation and | | | fibrosis. There is mild macrovesicular steatosis involving about 20% | | | of hepatocytes. Scattered glycogen nuclei are present. | | | Histiocytes are distributed within lobules and portal regions and | | | have foamy amphophilic cytoplasm. Lymphocytes in the portal regions | | | are generally confined without interface activity. There are a few | | | eosinophils in portal regions. There are no granulomas. No duct | | | proliferative or ductopenic lesions are seen. Rare neutrophils are | | | seen in the lobules associated with steatotic hepatocytes. To | | | further evaluate hepatic architecture and function, special stains are | | | performed with control tissues that react as expected. Results are | | | as follows: - Iron stain: Iron stains shows no accumulation of | | | iron within hepatocytes or Kupffer cells. - PAS with diastase: | | | Diastase has removed glycogen, showing no nsmaq-7-cgjxleumgnl-type | | | cytoplasmic inclusions. Macrophages containing nonspecific | | | diastase-resistant debris are relatively common, being present both | | | within the lobules and portal regions. The portal areas show | | | irregular enlargement. A slight degree of periportal hepatocyte | | | injury is apparent with an irregular interface and occasional small | | | collections of hepatocytes separate from the adjacent lobular | | | parenchyma in small clusters. - Reticulum stain: The reticulin | | | framework of cell plates shows condensation in a periportal | | | distribution. The central vein regions have a normal arrangement of | | | surrounding reticulin without injury localization to the central | | | veins. - Trichrome stain: Trichrome stains shows mild portal and | | | focal periportal extending fibrosis without bridging. EDGAR:jam | | | PERFORMING LABORATORY: Tissue processing and slide preparation were | | | performed by [employer], [address] [place] [address] St[address], [place] | | | [place] [address] ([employer] Dean: Gal Becker M.D.; CLIA#: | | | [id number]). Professional interpretation was performed by [employer] | | | [employer], [address] [place] [address] | | | ([employer] Dean: Minh Cano D.O.; CLIA#: [id number]). | | | Diagnostician: Domenic Omalley MD Pathologist Electronically | | | Signed 04/27/2017 | | + + + + +---------+ + + | Performing | Address | City/State/Zipcode | Phone Number | | Organization | | | | + +---------+ + + | [facility] | | | | | [facility] | | | | + +---------+ + + documented in this encounter Visit Diagnoses + + | Diagnosis | + + | Fatty infiltration of liver Other chronic nonalcoholic liver disease | + + documented in this encounter Administered Medications + +--------+ +--------+------+------+ | Medication Order | MAR | Action | Dose | Rate | Site | | | Action | Date | | | | + +--------+ +--------+------+------+ | fentaNYL (PF) injection PRN, | Given | 04/22/20 | 50 mcg | | | | Starting 04/22/17 at 0937 | | 17 9:41 | | | | | | | AM PDT | | | | + +--------+ +--------+------+------+ +-------+ +--------+---+---+ | Given | 04/22/20 | 50 mcg | | | | | 17 9:37 | | | | | | AM PDT | | | | +-------+ +--------+---+---+ +---+---+ | | | +---+---+ + +-------+ +------+---+---+ | midazolam (VERSED) 1 mg/mL | Given | 04/22/20 | 1 mg | | | | injection PRN, Starting Fri | | 17 9:41 | | | | | 04/22/17 at 0937 | | AM PDT | | | | + +-------+ +------+---+---+ +-------+ +------+---+---+ | Given | 04/22/20 | 1 mg | | | | | 17 9:37 | | | | | | AM PDT | | | | +-------+ +------+---+---+ + +---+ | | | + +---+ | sodium chloride 0.9% (NS) | | | infusion at 50 mL/hr, | | | Intravenous, CONTINUOUS, Starting | | | 04/22/17 at 0830, OK to use | | | implantable port., Pre-op | | + +---+ | | | + +---+ documented in this encounter
--- OUTSIDE RECORDS SUMMARY | ~2019-06-29 | XMS | Encounter Summary ---
Demographics + + + | Address | [address] | | | [place] [address] | + + + | Home Phone | | + + + | Preferred Language | Unknown | + + + | Marital Status | | + + + | Scientologist Affiliation | Unknown | + + + | Race | Unknown | + + + | Ethnic Group | Unknown | + + + Author + + + | Author | [facility] | | | and [place] | + + + | Organization | [facility] | | | and [place] [...] Team Providers + +------+ + | Care High School Admissions Representative Name | Role | Phone | + +------+ + | Deep Grace DO | PCP | | + +------+ + Encounter Details +--------+ + + + + | Date | Type | Department | Care Team | Description | +--------+ + + + + | 03/30/ | Abstract | [facility] | Rita, | | | 2017 | | GASTROENTEROLOGY | [place] [address] | | | | | [address] [place] | [place] | | | | | [address] [place] | [place] | | | | | [address] | [address] | | | | | [phone] | | | +--------+ + + + [...] | + +--------+ + + + | EXTERNAL: | Routin | 05/27/2016 | | Results for this | | COLONOSCOPY | e | | | procedure are in the | | | | | | results section. | + +--------+ + + + documented in this encounter Results EXTERNAL: COLONOSCOPY (05/27/2016) + + + + + + | Component | Value | Ref Range | Performed | Pathologist | | | | | At | Signature | + + + + + + | Colonoscopy | Diagnoses: | | | | | | diverticulosis, no | | | | | Impression, | evidence of polyps. | | | | | External | Internal hemorrhoids.~ | | | | | | [facility] | | | | + + + + + + documented in this encounter Visit Diagnoses Not on filedocumented in this encounter"
--- OUTSIDE RECORDS SUMMARY | ~2019-06-29 | XMS | Encounter Summary ---
Demographics + + + | Address | [address] | | | [place] [address] | + + + | Home Phone | | + + + | Preferred Language | Unknown | + + + | Marital Status | | + + + | Adventism Affiliation | Unknown | + + + | Race | Unknown | + + + | Ethnic Group | Unknown | + + + Author + + + | Author | [facility] | | | and [place] | + + + | Organization | [facility] | | | and [place] [...] Team Providers + +------+ + | Care Traffic Control Supervisor Name | Role | Phone | + [...] | infiltration | Anu, | [address] | | | | | of liver | [address] HANDLER/ DEPUTY [address] | [place], | | | | | Procedures | [place], [place] | [place] | | | | | [place] Guided | [address] | [address] | | | | | Liver Biopsy | [place] | Phone: | | | | | [place] | [address] | [phone] | | | | | GUIDE NEEDLE | Phone: | Fax: | | | | | BIOP[place] | [phone] | [phone] | | | | | BIOPSY LIVER | Fax: | | | | | | NEEDLE | [phone] | | | | | | PERCUTANEOUS [...] + + + + | 04/22/ | [facility] | [facility] | Kenton Liriano MD | Fatty infiltration | | 2017 | Encounter | MED CTR IR INTRA OP | [address] | of liver | | | | [address] | [place] | | | | | [place], [place] | [address] | | | | | [address] | [phone] | | | | | [phone] | | | +--------+ + + + [...] You can't be awakened Date Last Reviewed: 04/13/201619995747-8566 [employer]. [address] [place] [address], [place] [address]. All righ ts reserved. This information is [...] | | | | | | tin 0564-2106 | | | | | | | [...] [address] | [place] | [phone] | | [facility] | | [address] | | | - LABORATORY | | [...] [address] | [place] | [phone] | | [facility] | | [address] | | | - LABORATORY | | [...] the patient's | | | medications (prescribed, xzby-imj-cisxugr and herbal remedies) may be | | [...] cm. | | | All into (A1). yt:[facility] MICROSCOPIC EXAMINATION: The liver | | | [...] | Diastase has removed glycogen, showing no spwob-1-fvjagymycrd-type | | | cytoplasmic inclusions. Macrophages containing [...] preparation were | | | performed by [employer], [address] [place] [address] St[address], [place] | | | [place] [address] (Photography Coordinator: Gal Becker M.D.; CLIA#: | | | [id number]). Professional interpretation was performed by [employer] | | | [employer], [address] [place] [address] | | | (Photography Coordinator: Minh Cano D.O.; CLIA#: [id number]). | | | Diagnostician: Domenic Omalley MD Pathologist Electronically | | | Signed 04/27/2017 | | + + + + +---------+ + + | Performing | Address | City/State/Zipcode | Phone Number | | Organization | | | | + +---------+ + + | [facility] | | | | | [employer] | | | | + +---------+ + [...]
--- OUTSIDE RECORDS SUMMARY | ~2019-06-29 | XMS | Encounter Summary ---
Demographics + + + | Address | [address] | | | [place] [address] | + + + | Home Phone | | + + + | Preferred Language | Unknown | + + + | Marital Status | | + + + | Orthodox Affiliation | Unknown | + + + | Race | Unknown | + + + | Ethnic Group | Unknown | + + + Author + + + | Author | [facility] | | | and [place] | + + + | Organization | [facility] | | | and [...] Team Providers + +------+ + | Care Litigation Legal Secretary Name | Role | Phone | + [...] | [address] [place] | [place] [address] | | | | | [address] | [place] | | | | | [address] | [address] | | | | | [phone] | | | +--------+ + + + [...]
--- OUTSIDE RECORDS SUMMARY | ~2019-06-29 | XMS | Encounter Summary ---
Demographics + + + | Address | [address] | | | [place] [address] | + + + | Home Phone | | + + + | Preferred Language | Unknown | + + + | Marital Status | | + + + | Restorationist Affiliation | Unknown | + + + | Race | Unknown | + + + | Ethnic Group | Unknown | + + + Author + + + | Author | [facility] | | | and [place] | + + + | Organization | [facility] | | | and [place] [...] Team Providers + +------+ + | Care Solution Maker Name | Role | Phone | + +------+ + PCP | Unavailable | + +------+ + Encounter Details +--------+ + + + + | Date | Type | Department | Care Team | Description | +--------+ + + + + | 08/15/ | Hospital | [facility] | Noe Minaya | | | 2003 | Encounter | MED CTR MP INTRA OP | MD [address] [facility] | | | | | [address] | [place] | | | | | [place] | [id number] | | | | | [address] | | | | | | [phone] | | | +--------+ + + + + Social History + +-------+ +--------+------+ | Tobacco Use | Types | Packs/Day | Years | Date | | | | | Used | | + +-------+ +--------+------+ | Never Assessed | | | | | + +-------+ +--------+------+ + + + | Sex Assigned at [...]
--- OUTSIDE RECORDS SUMMARY | ~2019-06-29 | XMS | Encounter Summary ---
Demographics + + + | Address | [address] | | | [place] [address] | + + + | Home Phone | | + + + | Preferred Language | Unknown | + + + | Marital Status | | + + + | Taoism Affiliation | Unknown | + + + | Race | Unknown | + + + | Ethnic Group | Unknown | + + + Author + + + | Author | [facility] | | | and [place] | + + + | Organization | [facility] | | | and [place] [...] Team Providers + +------+ + | Care Ready Mix Truck Driver Name | Role | Phone | + +------+ + | Deep Grace DO | PCP | | + +------+ + Reason for Visit Auth/Cert +--------+--------+ + [...] Description | +--------+---------+ + + + | 04/22/ | Surgery | [facility] | Kenton Liriano MD | US GUIDED LIVER BX | | 2017 | | MED CTR IR INTRA OP | [address] | | | | | [address] | [place] | | | | | [place] | [address] | | | | | [address] | [phone] | | | | | [phone] | | | +--------+---------+ + + + [...] You can't be awakened Date Last Reviewed: 04/13/201619991432-8769 [employer]. [address] [place] [address]. All righ ts reserved. This information is [...] | | | | | | tin 9617-8885 | | | | | | | [...] | Procedure Note | + + | Pepito, Rad Results In - 04/22/2017 1:37 PM PDT [...] | | Anticoagulation Range: | | [facility] | | | | 2.0 - 3.0High [...] | + + + + + | [facility] | [address] | [place] | [phone] | | [facility] | | [address] | | | - LABORATORY | | [...] [facility] | | | | | | [facility] | | | [facility] | [facility] | | | | | | [facility] - | | | | | | LABORATORY | | + +-------+ + + + | RBC | 4.75 | 3.70 - 5.20 | [facility] | | | | | [facility]L [facility] | | [facility] | | | | | | [facility] - | | | | | | LABORATORY | | + +-------+ + + + | Hemoglobin | 15.1 | 11.5 - 16.0 | [facility] | | | | | g/dL | [facility] | | | | | | [...] ST. | [address] | [place], [place] | [phone] | | [facility] | | [address] | | | - LABORATORY | | | | + + + + + Surgical Pathology Exam (04/22/2017 12:00 AM PDT) + + | Specimen | + + | | + + + + + | Narrative | Performed At | + + + | SPECIMEN(S): A US GUIDED LIVER, RIGHT LOBE SPECIMEN SOURCE: A. US | [facility] | | GUIDED LIVER, RIGHT LOBE [...] the patient's | | | medications (prescribed, tsnu-bev-dgexicn and herbal remedies) may be | | [...] primary biliary tract | | | lesion. BMH:caw:C2NR GROSS DESCRIPTION: The specimen is labeled | | | and designated "Jose Jefferson, liver" and designated "liver | | | right lobe" on the requisition. Received in formalin are two orange | | | colored cores of tissue, less than 0.1 cm in width to 2.2-2.5 cm. | | | All into (A1). yt:CLR:[facility] MICROSCOPIC EXAMINATION: The liver | [...] | Diastase has removed glycogen, showing no duhfp-7-tfkgyahxiss-type | | | cytoplasmic inclusions. Macrophages containing [...] | focal periportal extending fibrosis without bridging. BMH:cajules | | | PERFORMING LABORATORY: Tissue processing and slide preparation were | | | performed by [facility], [facility], [facility], [facility] | | | [place] [address] (Tree Trimming Supervisor: Gal Becker M.D.; CLIA#: | | | [id number]). Professional interpretation was performed by [email or web address] | | | [employer], [address] [place] [address] | | | (Tree Trimming Supervisor: Minh Cano D.O.; CLIA#: [id number]). | | | Diagnostician: Domenic Omalley MD Pathologist Electronically | | | Signed 04/27/2017 | | + + + + +---------+ + + | Performing | Address | City/State/Zipcode | Phone Number | | Organization | | | | + +---------+ + + | [place] [facility] | | | | | [facility] | | | | + +---------+ + + documented in this encounter Visit Diagnoses Not on filedocumented in this encounter Administered Medications + +--------+ [...]
--- OUTSIDE RECORDS SUMMARY | ~2019-06-29 | XMS | Clinical Summary ---
Demographics + + + | Address | [address] | | | [place] [address] | + + + | Home Phone | | + + + | Preferred Language | Unknown | + + + | Marital Status | | + + + | Shinto Affiliation | Unknown | + + + | Race | Unknown | + + + | Ethnic Group | Unknown | + + + Author + + + | Author | [facility] | | | and [place] | + + + | Organization | [facility] | | | and [place] [...] Team Providers + +------+ + | Care Accounts Payable Supervisor Name | Role | Phone | + +------+ + | Yuly Lorenzo | PCP | | + +------+ + Allergies + + + + + + | Active Allergy | Reactions | Severity | Noted | Comments | | | | | Date | | + + + + + + | Sulfa Antibiotics | Hives | | 03/17/20 | | | | | | 17 | | + + + + + + Medications + + + +---------+------+------+-------+ | Medication | Sig | Dispensed | Refills | Star | End | Statu | | | | | | t | Date | s | | | | | | Date | | | + + + +---------+------+------+-------+ | aspirin 81 mg EC | Take 81 mg by mouth | | 0 | | | Activ | | tablet | Daily. | | | | | e | + + + +---------+------+------+-------+ | calcium, as | Take 600 mg by mouth | | 0 | | | Activ | | carbonate, | 2 times daily (with | | | | | e | | (CALTRATE) 600 mg | breakfast & | | | | | | | tablet | dinner). | | | | | | + + + +---------+------+------+-------+ | tocopherol | Take 400 Units by | | 0 | | | Activ | | (VITAMIN E) 400 | mouth Daily. | | | | | e | | units capsule | | | | | | | + + + +---------+------+------+-------+ | zinc 50 MG TABS | Take 50 mg by mouth | | 0 | | | Activ | | | Daily. | | | | | e | + + + +---------+------+------+-------+ | fish oil 1,000 mg | Take 1,000 mg by | | 0 | | | Activ | | capsule | mouth 2 times daily. | | | | | e | + + + +---------+------+------+-------+ | Flaxseed, Linseed, | Take 1 capsule by | | 0 | | | Activ | | (FLAXSEED OIL) 1000 | mouth Daily. | | | | | e | | MG CAPS | | | | | | | + + + +---------+------+------+-------+ | | Take by mouth 2 | | 0 | | | Activ | | Glucosamine-Chondroi | times daily. | | | | | e | | tin [id number] | | | | | | | | MG/30ML LIQD | | | | | | | + + + +---------+------+------+-------+ | lovastatin | Take 40 mg by mouth | | 0 | | | Activ | | (MEVACOR) 40 MG | nightly. | | | | | e | | tablet | | | | | | | + + + +---------+------+------+-------+ | Magnesium | Take by mouth. | | 0 | | | Activ | | Aspartate 65 MG TABS | | | | | | e | + + + +---------+------+------+-------+ | pramipexole | Take 0.375 mg by | | 0 | | | Activ | | (MIRAPEX) 0.125 MG | mouth 3 times daily. | | | | | e | | tablet | | | | | | | + + + +---------+------+------+-------+ | multivitamin | Take 1 tablet by | | 0 | | | Activ | | tablet | mouth Daily. | | | | | e | + + + +---------+------+------+-------+ | niacin 500 mg | Take 500 mg by mouth | | 0 | | | Activ | | tablet | 2 times daily (with | | | | | e | | | breakfast & | | | | | | | | dinner). | | | | | | + + + +---------+------+------+-------+ | Multiple | Take 1 tablet by | | 0 | | | Activ | | Vitamins-Minerals | mouth Daily. | | | | | e | | (OCUVITE PO) | | | | | | | + + + +---------+------+------+-------+ | cholecalciferol | Take 2,000 Units by | | 0 | | | Activ | | (VITAMIN D-3) 2000 | mouth 2 times daily. | | | | | e | | units TABS | | | | | | | + + + +---------+------+------+-------+ | diclofenac | Apply 2-4 g | | 0 | | | Activ | | (VOLTAREN) 1% GEL | topically 4 times | | | | | e | | | daily. | | | | | | + + + +---------+------+------+-------+ | Probiotic Product | Take by mouth. | | 0 | | | Activ | | (PROBIOTIC DAILY PO) | | | | | | e | + + + +---------+------+------+-------+ Active Problems No known active problems Family History + + + + + | Medical History | Relation | Name | Comments | + + + + + | High blood pressure | Father | Jarad C | | | | | Winks | | + + + + + | High cholesterol | Father | Jarad C | | | | | Winks | | + + + + + | Hypertension | Father | Jarad C | | | | | Winks | | + + + + + | Heart disease | Mother | Georgett | | | | | e Winks | | + + + + + | High blood pressure | Mother | Georgett | | | | | e Winks | | + + + + + | High cholesterol | Mother | Georgett | | | | | e Winks | | + + + + + | Hypertension | Mother | Gena | | | | | e Juniks | | + + + + + | Stroke | Mother | Georgett | Slight | | | | e Winks | | + + + + + | Diabetes | Other | uncle | | + + + + + | Heart disease | Other | grandfat | | | | | her | | + + + + + | Hypertension | Sister | | | + + + + + | Other (see comment) | Sister | | possible fibromyalgia | + + + + + + + +--------+ + | Relation | Name | Status | Comments | + + +--------+ + | Brother | | Alive | | + + +--------+ + | Father | Jarad C | Alive | | | | Winks | | | + + +--------+ + | Mother | Kamini | Alive | | | | Winks | | | + + +--------+ + | Other | uncle | Alive | | + + +--------+ + | Other | grandfath | Alive | | | | er | | | + + +--------+ + | Sister | | | | + + +--------+ + Social History + +-------+ +--------+------+ | [...] recent travel history available. | + + Last Filed Vital Signs + + + [...] | | + + + + + Plan of Treatment + + + + + | Health Maintenance | Due Date | Last Done | Comments | + + + + + | Vaccine: | | | | | Dtap/Tdap/Td (1 - | 8 | | | | Tdap) | | | | + + + + + | Cervical Cancer | | | | | Screening (Pap) | 7 | | | + + + + + | Vaccine: Zoster (1 | | | | | of 2) | 7 | | | + + + + + | Breast Cancer | | | | | Screening | 2 | | | + + + + + | Vaccine: Influenza | | | | | (#1) | 9 | | | + + + + + Results Not on filefrom Last 3 Months Insurance +-------+--------+ +--------+ + +------+ | Payer | Benefi | Subscriber | Effect | Phone | Address | Type | | | t Plan | ID | asuncion | | | | | | / | | Dates | | | | | | Group | | | | | | +-------+--------+ +--------+ + +------+ | MODA | MODA | [id number] | 06/[birth year]19 | [phone] | [address] | PPO | | | [employer] | | 17-Pre | 9 | [phone] | | | | [place] | | sent | | [place], | | | | [place] | | | | [place] [address] | | +-------+--------+ +--------+ + +------+ + +--------+ +--------+ + + | Guarantor Name | Accoun | Relation to | Date | Phone | Billing Address | | | t Type | Patient | of | | | | | | | | | | + +--------+ +--------+ + + | Jose Jefferson | Person | Self | [birth year] | [address] | | | al/Fam | | 1955 | [phone] | [place] [address] | | | [place] | | | 0 (Home) | | + +--------+ +--------+ + + Advance Directives + + + + + | Type | Date Recorded | Patient | Explanation | | | | Power Wood Sawyer | | + + + + + | Power of | | | | | [employer] | | | | + + + + + | Advance | 04/22/2017 | | | | Directive | 7:53 AM | | | + + + + +
--- OUTSIDE RECORDS SUMMARY | ~2019-06-29 | XMS | Encounter Summary ---
Demographics + + + | Address | [address] | | | [place] [address] | + + + | Home Phone | | + + + | Preferred Language | Unknown | + + + | Marital Status | | + + + | Amish Affiliation | Unknown | + + + | Race | Unknown | + + + | Ethnic Group | Unknown | + + + Author + + + | Author | [facility] | | | and [place] | + + + | Organization | [facility] | | | and [place] [...] Team Providers + +------+ + | Care Jewelry Inspector Name | Role | Phone | + +------+ + PCP | Unavailable | + +------+ + Encounter Details +--------+ + + + + | Date | Type | Department | Care Team | Description | +--------+ + + + + | 03/18/ | [facility] | [facility] | Noe Minaya | | | 2002 | Encounter | MED CTR XRAY [address] | MD [address] [facility] | | | | | [address] | [place] | | | | | [place] [address] | [address] | | | | | [phone] | | | +--------+ + + + [...]
--- OUTSIDE RECORDS SUMMARY | ~2019-06-29 | XMS | Encounter Summary ---
Demographics + + + | Address | [address] | | | [place] [address] | + + + | Home Phone | | + + + | Preferred Language | Unknown | + + + | Marital Status | | + + + | Baptist Affiliation | Unknown | + + + | Race | Unknown | + + + | Ethnic Group | Unknown | + + + Author + + + | Author | [facility] | | | and [place] | + + + | Organization | [facility] | | | and [place] [...] Team Providers + +------+ + | Care Metallurgical Inspector Name | Role | Phone | [...] | [address] | [place], [place] | infiltration of | | | | [address] [place], [place] | [place], [place] | liver; Obesity (BMI | | | | [address] | [address] | 30-39.9) | | | | [phone] | | | +--------+---------+ + + + [...] has modified her diet and is eating s0cketi er. She is here for follow up [...] injury. Review of the patient's medications (prescribed, zkqx-njt-ujfljaz and herbal remedies) may be informative. Since [...]
--- OUTSIDE RECORDS SUMMARY | ~2019-06-29 | XMS | Encounter Summary ---
Demographics + + + | Address | [address] | | | [place] [address] | + + + | Home Phone | | + + + | Preferred Language | Unknown | + + + | Marital Status | | + + + | Samaritan Affiliation | Unknown | + + + | Race | Unknown | + + + | Ethnic Group | Unknown | + + + Author + + + | Author | [facility] | | | and [place] | + + + | Organization | [facility] | | [...] Team Providers + +------+ + | Care Solvent Station Attendant Name | Role | Phone | + [...] | infiltration | Anu, | [address] | | | | | of liver | SENIOR CORPORATE RECRUITER [address] | [place], | | | | | Procedures | [place], [place] | [place] | | | | | [place] Guided | [address] [place] | [address] | | | | | Liver Biopsy | [place] | Phone: | | | | | [place] | [address] | [phone] | | | | | GUIDE NEEDLE | Phone: | Fax: | | | | | BIOPSY [place] | [phone] | [phone] | | | | | BIOPSY LIVER | Fax: | | | | | | NEEDLE | [phone] | | | | | | PERCUTANEOUS [...] | DO [address] | [address], | | | | | liver, not | [place] | [place] [address] | | | | | elsewhere | [place], [place] | [place], | | | | | classified | [address] | [place] [address] | | | | | Procedures | Phone: | Phone: | | | | | Office Visit | [phone] | [phone] | | | | | | Fax: | Fax: | | | | | | [phone] | [phone] | +--------+--------+ + + + + Encounter [...] | [address] | [place], [place] [address] | Dx); Obesity (BMI | | | | [address] [place], [place] | [place], [place] | 30-39.9); Elevated | | | | [address] | [address] | LFTs | | | | [phone] | | | +--------+---------+ + + + [...] can cause liver disease. Date Last Reviewed: 05/27/201619997191-3907 [employer]. [address] [place] [address]. All righ ts reserved. This information is [...] diverticulosis, no evidence of polyps. Internal hemorrhoids.~ [facility] Dr. Evans Family History Problem Relation Age [...] 50* 0 - 4 Final UA Specific [place], External 12/22/2016 1.011 1.005 - 1.03 Final [...] infiltration of liver Alpha Fetoprotein, Tumor Marker Mioph-3-Feobpwbgbqy, Total ALIVIA Screen, Qual Smooth Muscle Ab [...] 07/29/2017 | + +------+--------+ + + | Rlcde-1-Ccoqbhxtflp, | Lab | Routin | Fatty infiltration [...]
--- OUTSIDE RECORDS SUMMARY | ~2019-06-29 | XMS | Encounter Summary ---
Demographics + + + | Address | [address] | | | [place] [address] | + + + | Home Phone | | + + + | Preferred Language | Unknown | + + + | Marital Status | | + + + | Islam Affiliation | Unknown | + + + | Race | Unknown | + + + | Ethnic Group | Unknown | + + + Author + + + | Author | [facility] | | | and [place] | + + + | Organization | [facility] | | | and [place] [...] Team Providers + +------+ + | Care Solar Consultant Name | Role | Phone | + [...] | [address] | [place], [place] [address] | | | | | [address] [place] | [place] | | | | | [address] | [address] | | | | | [phone] | | | +--------+ + + + [...]
--- OUTSIDE RECORDS SUMMARY | ~2019-06-29 | XMS | Clinical Summary ---
Demographics + + + | Address | [address] | | | [place] [address] | + + + | Home Phone | | + + + | Preferred Language | Unknown | + + + | Marital Status | | + + + | Amish Affiliation | Unknown | + + + | Race | Unknown | + + + | Ethnic Group | Unknown | + + + Author + + + | Author | [facility] | | | and [place] | + + + | Organization | [facility] | | | and [place] | [...] Team Providers + +------+ + | Care Canceling Machine Operator Name | Role | Phone | + [...] | | | e | | tin 2839-5022 | | | | | | | [...] + + +--------+ + | Mother | Kmaini | Alive | | | | Winks [...] + +------+ | MODA | MODA | [id number] | [birth year] | [phone] | [address] | PPO | | | [employer] | | 17-Pre | 9 | [phone] | | | | [place] | | sent | | [place], | | | | [place] | | | | [place] [address] | | +-------+--------+ +--------+ + +------+ + [...] | 1955 | [phone] | [place] [address] | | | jonelle | | | 0 (Home) | | + +--------+ +--------+ + + Advance Directives + + + + + | Type | Date Recorded | Patient | Explanation | | | | Flow Trader | | + + + + + | Power of | | | | | Metal Washing Machine Operator | | | | + + + + + | Advance | 04/22/2017 | | | | Directive | 7:53 AM | | | + + + + +
--- OUTSIDE RECORDS SUMMARY | ~2019-06-29 | XMS | Encounter Summary ---
Demographics + + + | Address | [address] | | | [place] [address] | + + + | Home Phone | | + + + | Preferred Language | Unknown | + + + | Marital Status | | + + + | Amish Affiliation | Unknown | + + + | Race | Unknown | + + + | Ethnic Group | Unknown | + + + Author + + + | Author | [facility] | | | and [place] | + + + | Organization | [facility] [...] Team Providers + +------+ + | Care Communications Associate Name | Role | Phone | [...] | [address] | [place], [place] [address] | | | | | [address] [place], [place] | [place], [place] | | | | | [address] | [address] | | | | | [phone] | | | +--------+ + + + [...]
--- OUTSIDE RECORDS SUMMARY | ~2019-06-29 | XMS | Encounter Summary ---
Demographics + + + | Address | [address] | | | [place] [address] | + + + | Home Phone | | + + + | Preferred Language | Unknown | + + + | Marital Status | | + + + | Gnosticism Affiliation | Unknown | + + + | Race | Unknown | + + + | Ethnic Group | Unknown | + + + Author + + + | Author | [facility] | | | and [place] | + + + | Organization | [facility] | | | and [place] [...] Team Providers + +------+ + | Care Supervisor Body Assembly Name | Role | Phone | + +------+ + PCP | Unavailable | + +------+ + Encounter Details +--------+ + + + + | Date | Type | Department | Care Team | Description | +--------+ + + + + | 03/18/ | [facility] | [facility] | Noe Minaya | | | 2002 | Encounter | MED CTR XRAY [address] | MD [address] [facility] | | | | | [facility] [place] | [place] | | | | | [place] [address] | [address] | | | | | [phone] | | | +--------+ + + + [...]
--- OUTSIDE RECORDS SUMMARY | ~2019-06-29 | XMS | Encounter Summary ---
Demographics + + + | Address | [address] | | | [place] [address] | + + + | Home Phone | | + + + | Preferred Language | Unknown | + + + | Marital Status | | + + + | Oriental Orthodox Affiliation | Unknown | + + + | Race | Unknown | + + + | Ethnic Group | Unknown | + + + Author + + + | Author | [facility] | | | and [place] | + + + | Organization | [facility] | | | and [...] Team Providers + +------+ + | Care Maintenance Repairer Name | Role | Phone | + +------+ + PCP | Unavailable | + +------+ + Encounter Details +--------+ + + + + | Date | Type | Department | Care Team | Description | +--------+ + + + + | 08/15/ | Hospital | [facility] | Noe Minaya | | | 2003 | Encounter | MED CTR MP INTRA OP | MD [address] [facility] | | | | | [address] | [place] | | | | | [place] | [id number] | | | | | [address] | | | | | | [phone] | | | +--------+ + + + [...]
--- OUTSIDE RECORDS SUMMARY | ~2019-06-29 | XMS | Encounter Summary ---
Demographics + + + | Address | [address] | | | [place] [address] | + + + | Home Phone [...] [facility] | | | and [place] | + + + | Organization | [facility] | | | and [place] [...] Team Providers + +------+ + | Care Sterile Process Coordinator Name | Role | Phone | + [...] + + | 04/22/ | Surgery | [facility] | Kenton Liriano MD | US GUIDED LIVER BX | | 2017 | | MED CTR IR INTRA OP | [address] | | | | | [address] | [place] | | | | | [place] | [address] | | | | | [address] | [phone] | | | | | [phone] | | | +--------+---------+ + + + [...] You can't be awakened Date Last Reviewed: 04/13/[id number] [employer]. [address] [place] [address]. All righ ts reserved. This information is [...] | | | | | | tin 8021-1912 | | | | | | | [...] [address] | [place] | [phone] | | [facility] | | [address] | | | - LABORATORY | | [...] ST. | [address] | [place], [place] | [phone] | | [facility] | | [address] | | | - LABORATORY | | | | + + + + + Surgical Pathology Exam (04/22/2017 12:00 AM PDT) + + | Specimen | + + | | + + + + + | Narrative | Performed At | + + + | SPECIMEN(S): A US GUIDED LIVER, RIGHT LOBE SPECIMEN SOURCE: A. US | [facility] | | GUIDED LIVER, RIGHT LOBE [...] the patient's | | | medications (prescribed, cvjh-bqa-powmsjr and herbal remedies) may be | | [...] cm. | | | All into (A1). yt:CLR:[facility] MICROSCOPIC EXAMINATION: The liver | | | [...] | Diastase has removed glycogen, showing no elqev-9-eootvhvygpu-type | | | cytoplasmic inclusions. Macrophages containing [...] preparation were | | | performed by [place], [facility], [facility], [facility] | | | [place] [address] (Distillery Worker: Gal Becker M.D.; CLIA#: | | | [id number]). Professional interpretation was performed by [facility] | | | [employer], [address] [place] [address] | | | (Distillery Worker: Minh Cano D.O.; CLIA#: [id number]). | | | Diagnostician: Domenic Omalley MD Pathologist Electronically | | | Signed 04/27/2017 | | + + + + +---------+ + + | Performing | Address | City/State/Zipcode | Phone Number | | Organization | | | | + +---------+ + + | [facility] | | | | | [facility] | | | | + +---------+ + [...]
[~2019-06-29 13:11] MED LIST: ASPIR 8181 MG PO; CALCIUM 600 +1 EAC1 PO; FISH OIL 1,0001 EAC3 PO; FLAXSEED OIL1000 M1 PO; FLUOXETINE HCL20 M1 PO; GLUCOSAMINE H1500 MG PO; HEALTHY EYES T1 EACH PO; MAG6464 MG PO; MULTI VITAMIN1 EACH PO; NIACIN500 MG PO; PRAMIPEXOLE0.125 MG PO; VITAMIN C1000 MG PO; VITAMIN D2000 UNI1 PO; VITAMIN E400 UNI5 PO; VOLTAREN100 GM TOP; ZINC50 M2 PO
--- OUTSIDE RECORDS SUMMARY | 2019-06-29 13:14 | XMS ---
PreManage Notification: FOSTER GARCÍA Security Director Of Epidemiology Events No recent Security Events currently on file CRITERIA MET - EARLINEP CARE PROVIDERS Yuly Lorenzo PA-C Treatment Current PHONE: Unknown Robby has no Care Guidelines for this patient. EBernice VISIT COUNT (12 MO.) 1 [facility] [place] TOTAL 1 NOTE: Visits indicate total known visits. ED/UCC VISIT TRACKING (12 MO.) 06/29/2019 13:12 [facility] [place] TYPE: Emergency COMPLAINT: - PELVIC PAIN INPATIENT VISIT TRACKING (12 MO.) No inpatient visits to display in this time frame [id number]
[2019-06-29] MEDS ORDERED: NORCO 5-325 TA1 EACH PO (17:58)
== END 2019-06-29 18:11 | disposition home or self-care (01) ==
LOC: ED 13:11
DX: R10.31 Right lower quadrant pain (principal); E78.5 Hyperlipidemia, unspecified; Z88.2 Allergy status to sulfonamides; Z79.899 Other long term (current) drug therapy; Z79.82 Long term (current) use of aspirin
CPT/HCPCS: 74177; 80053; 81001; 83690; 85025; 85651; 86140; 99284-25; J3010; J7030; Q9967

== ENCOUNTER 2025-05-27 11:00 | Day surgery (SDC) | payer MEDICARE ==
[~2025-05-27] VITALS: Ht 162.6 cm; Wt 86.0 kg
[~2025-05-27 11:00] MED LIST changes: +CEFAZOLIN SODIUM 2 GM in SODIUM CHLORIDE 0.9% 100 ML IV SCH; +DICLOFENAC SODI75 MG PO; +EYE MULTIVITAM1 EAC4 PO; -FISH OIL 1,0001 EAC3 PO; +FISH OIL 1,0001 EAC5 PO; +GABAPENTIN300 MG PO; +HYDROCHLOROTH12.5 MG PO; +IBLOOD GLUCOSE TEST STRIP 1 EA TEST VI PRN; +LACTATED RINGER'S 1,000 ML IV SCH; +LIDOCAINE HCL 1% 5 ML SDV INJ ONE; +LOVASTATIN20 MG PO; +LOVASTATIN40 MG PO; +NORCO 5-325 TA1 EACH PO; +OXYBUTYNIN CHLO10 MG PO; +POTASSIUM600 MG PO; +PROBIOTIC 1 B1 EACH PO; +ROPINIROLE HC0.25 MG PO; +SEVOFLURANE 250 ML BTL INH ONE; +TIZANIDINE HCL2 M1 PO; +TURMERIC500 M3 PO; -VOLTAREN100 GM TOP
[2025-05-27 11:29] VITALS: BP 158/81
[2025-05-27] MEDS ORDERED: MIDAZOLAM HCL 2 MG/2 ML VIAL ONE (11:44)
[2025-05-27] MEDS ORDERED: LIDOCAINE HCL 2% 5 ML SDV ONE (11:45)
[2025-05-27] MEDS ORDERED: Ropivacaine HCl 0.5% 30 ML VIAL ONE (11:45)
[2025-05-27] MEDS ORDERED: DEXAMETHASONE SOD PHOS 4 MG/ML VIAL ONE (11:51)
[2025-05-27] MEDS ORDERED: HYDROCODONE/ACETA 7.5/325 TAB PO PRN (12:15)
[2025-05-27] MEDS ORDERED: BUPIVACAINE HCL 0.25% 50 ML MDV ONE (12:16)
[2025-05-27] MEDS ORDERED: TRANEXAMIC ACID IN NACL,ISO-OS 200 ML IV ONE (12:22)
[2025-05-27] MEDS ORDERED: TRANEXAMIC ACID IN NACL,ISO-OS 1,000 MG/100 ML PIGGYBACK IV SCH (12:30)
[2025-05-27] MEDS ORDERED: PHENYLEPHRINE HCL IN 0.9% NACL 1 MG/10 ML SYR ONE ×2 (13:15→13:54)
[2025-05-27] MEDS ORDERED: KETOROLAC TROMETHAMINE 30 MG/ML VIAL IV PRN (13:30)
[2025-05-27] MEDS ORDERED: IBLOOD GLUCOSE TEST STRIP 1 EA TEST VI PRN (13:30)
[2025-05-27] MEDS ORDERED: fentaNYL citrate 50 MCG/ML SDV IV PRN (13:30)
[2025-05-27] MEDS ORDERED: NALOXONE HCL 0.4 MG SYR IV PRN (13:30)
[2025-05-27] MEDS ORDERED: HYDROCODON-ACE1 EA11 PO (14:16)
--- NOTE | 2025-05-27 14:21 | NUR ---
05/27/25 1421 Graciela Carrasco 1411: PT ARRIVES TO PACU AWAKE AND ALERT. SHE DENIES PAIN AND NAUSEA. PT CONNECTED TO MONITORS. REPORT RECEIVED FROM OR AND AND SOFTWARE INSTALLATION ENGINEER.
[2025-05-27 14:44] VITALS: BP 125/71
[2025-05-27 15:52] VITALS: BP 134/82
--- NOTE | 2025-05-27 17:06 | NUR ---
LE 1444-PT BACK TO ROOM FROM PACU. RECEIVED REPORT FROM CARYN SUTHERLAND. PT IS AWAKE. RESP EVEN AND UNLABORED. DENIES PAIN AND NAUSEA, L ARM IN SHOULDER IMMOBILIZER. LE 1450-PT AMBULATES TO RESTROOM. GAIT STEADY AND TOLERATED WELL. PT ABLE TO VOID. LE 1454-PT BACK TO BED. NO OTHER NEEDS AT THIS TIME. CALL LIGHT WITHIN REACH. AT BEDSIDE.
--- NOTE | 2025-05-27 17:19 | NUR ---
MARCOS 1552-PT LAYING IN BED. RESP EVEN AND UNLABORED. DENIES PAIN AND NAUSEA. PT READAY TO GO HOME. PT WILL GET DRESSED WITH THE HELP OF THIS RN AND HER .
--- NOTE | 2025-05-27 17:21 | NUR ---
LE 1605-WENT OVER DISCHARGE INSTRUCTIONS WITH PT AND HER . WENT OVER POSTOP MEDICATIONS. ALL QUESTIONS ANSWERED. LE 1611-PT AMBUALTES TO WHEELCHAIR AND RIDE PROVIDED TO FRONT OF HOSPITAL WHERE WAS WAITING WITH THE CAR.
[2025-05-27] MEDS ORDERED: DICLOFENAC SOD 75 MG TABEC PO SCH (21:00)
--- NOTE | 2025-05-30 16:16 | OR ---
[facility] [address], [place] [address] Signed DATE OF OPERATION: 05/27/2025 SURGEON: Cristiana Farley MD PREOPERATIVE DIAGNOSES: Rotator cuff tear, left shoulder. POSTOPERATIVE DIAGNOSES: 1. Rotator cuff tear, left shoulder. 2. Grade 4 osteoarthritis, left humerus. PROCEDURE PERFORMED: Diagnostic arthroscopy left shoulder with rotator cuff repair CASING FINISHER AND STUFFER: Lianne Iglesias PA-C. Lianne was present and critical for all portions of procedure. ANESTHESIA: General. BLOOD LOSS: 75 mL. IMPLANTS: 4.75 SwiveLock anchor x3. BRIEF HISTORY: Foster is a 70-year-old female with pain and weakness in her shoulder. MRI is consistent with a significant rotator cuff tear. Risks and benefits of operative treatment were discussed with her and she elected to proceed. Once consent was obtained she was taken to the operating room. After adequate anesthesia, she was placed in a beach chair position. All downside pressure points were well padded. Left shoulder was prepped and draped in a standard sterile fashion. Shoulder was then injected with 15 mL of 0.25% Marcaine with epinephrine as was subacromial space. Standard posterior portal was made. The scope was introduced in the shoulder. ARTHROSCOPIC FINDINGS: Biceps was noted to be intact as was the biceps anchor and labrum. The glenoid surface showed grade 1 to 2 chondromalacia. Humeral surface showed grade 3 to grade 4 chondromalacia over at least 60% of the humeral head. Rotator cuff Electronically Signed By: CRISTIANA FARLEY MD 05/30/25 1616 PATIENT NAME: FOSTER GARCÍA OPERATIVE REPORT DATE OF : 59 REPORT #: [id number] PHYSICIAN: CRISTIANA FARLEY MD PCP: TIAGO SWAIN PA-C REPORT IS CONFIDENTIAL AND NOT TO BE RELEASED WITHOUT AUTHORIZATION [facility] [address] [facility] [place] [address] Signed was noted to be torn from the biceps posteriorly about 3 cm. DESCRIPTION OF OPERATION: Standard lateral portal was made and the scope was placed in subacromial space. The bursa was then removed using a combination of Mitek VAPR and shaver. The rotator cuff edge was then assessed and was reduced back to the tuberosity with no significant tension. The tuberosity was then cleared of soft tissue and debrided using the shaver to create a good bleeding surface. Three fiber tapes were then placed in inverted mattress configuration. We did make two more incisions to correspond to these. The first anchor was then placed just posterior to the biceps tensioning the rotator cuff down to the tuberosity. Second was placed midway back and the third was placed to the posterior aspect of the tear. All suture ends were cut. The shoulder was then moved and the rotator cuff appeared to be in stable fixation. There was excellent bleeding from the tuberosity. Scope was then withdrawn. Portals were closed with 3-0 nylon and dressed with Allevyn and OpSite. She tolerated the procedure well. All sponge, needle, and instrument counts were correct. Cristiana Farley MD BA/MODL /[id number] Copies: ~ Electronically Signed By: CRISTIANA FARLEY MD 05/30/25 1616 PATIENT NAME: FOSTER GARCÍA OPERATIVE REPORT DATE OF : 59 REPORT #: [id number] PHYSICIAN: CRISTIANA FARLEY MD PCP: TIAGO SWAIN PA-C REPORT IS CONFIDENTIAL AND NOT TO BE RELEASED WITHOUT AUTHORIZATION
== END 2025-05-27 16:10 | disposition home or self-care (01) ==
LOC: DS 11:00
PROVIDERS: ATTEND Specialist
PROC: 3E0T3BZ Introduction of Anesthetic Agent into Peripheral Nerves and Plexi, Percutaneous Approach (ICD-10-PCS; 2025-05-27)
PROC: 0LQ24ZZ Repair Left Shoulder Tendon, Percutaneous Endoscopic Approach (ICD-10-PCS; principal; 2025-05-27 14:35)
DX: M75.122 Complete rotator cuff tear or rupture of left shoulder, not specified as traumatic (principal); M94.212 Chondromalacia, left shoulder; M19.012 Primary osteoarthritis, left shoulder; E78.00 Pure hypercholesterolemia, unspecified; Z88.2 Allergy status to sulfonamides; Z79.899 Other long term (current) drug therapy
CPT/HCPCS: 01630; 64415; C1713; J0165; J0688; J1100; J2003; J2250; J2405; J2704; J2795; J7121